=== PATIENT | female | born 1945 | race Caucasian/White ===

== ENCOUNTER 2020-03-16 12:41 | Outpatient (CLI) | payer OTHER, MEDICARE, SELFPAY ==
--- NOTE | 2020-03-21 11:21 | WPDPFTINT ---
PFT Interpretation PFT Interpretation: DOS: 03/16/2020 REQUESTING: Michael Valdovinos MD REASON FOR TESTING: Dyspnea PULMONARY FUNCTION TESTS Results are reliable and reproducible. Spirometry: FEV1 is 88%, FVC is 86%, FEV1 is normal. CCM43-67% is 63%, and increases by 32% after bronchodilator. There is no change in FEV1 after bronchodilator. Lung volumes: TLC 90%, normal. RV is 99%, normal. RV/TLC is increased consistent with air trapping. Increased airway resistance 143%. Diffusion: DLCO 71% mildly decreased. Flow volume loop: Normal. IMPRESSION: Mild small airway pattern with good response to bronchodilator, mild air trapping, mild increased airway resistance and mild diffusion impairment. Clinical correlation is recommended. Bela Ramirez MD
--- NOTE | 2020-03-21 11:27 | WPDSIXMINUTE ---
Six Minute Walk Six Minute Walk: DOS: 03/16/2020 REQUESTING: Michael Valdovinos MD REASON FOR TESTING: dyspnea SIX MINUTE WALK This test was conducted per ATS guidelines. The patient was on room air. Initial saturation measured was 95% and pulse was 85 beats per minute. She walked for 6 minutes without stopping, completing 950 feet / 290 meters. Saturation was maintained 91-99% while walking. Heart rate maximum was 121. Heart rate returned to normal at the end of recovery. Initial saturation of 89% is probably spurious. IMPRESSION: No hypoxemia noted on this test. No supplemental oxygen is indicated with exertion.
== END 2020-03-16 12:42 | disposition home or self-care (01) ==
PROVIDERS: PCP Family Medicine; Visit Provider Internal Medicine Pulmonary Disease
DX: R06.00 Dyspnea, unspecified (principal)
CPT/HCPCS: 94060; 94618; 94726; 94729

== ENCOUNTER 2020-06-08 14:02 | Outpatient (CLI) | payer OTHER, MEDICARE, SELFPAY ==
--- NOTE | ~2020-06-08 | MM_ITS ---
EXAMINATION: MM screening [facility] [place] HISTORY: Screening mammogram TECHNIQUE: Craniocaudal and mediolateral oblique 3-D tomosynthesis images were obtained and synthetic 2-D images were generated. CAD analysis was submitted and interpreted. COMPARISON: 03/14/2019, 09/08/2017, 07/21/2016 BREAST PARENCHYMAL COMPOSITION: There are scattered areas of fibroglandular density. FINDINGS: There is no evidence of suspicious mass, calcification, or architectural distortion to sugg est malignancy in either breast. There has been no suspicious interval change. IMPRESSION: 1. No mammographic evidence of malignancy. 2. Recommend routine screening mammography in one year. BI-RADS Category 1: Negative Reviewed, dictated and finalized at location A.
== END 2020-06-08 14:03 | disposition home or self-care (01) ==
LOC: ANHIMG 14:04
PROVIDERS: PCP Family Medicine; Visit Provider Obstetrics & Gynecology
DX: Z12.31 Encounter for screening mammogram for malignant neoplasm of breast (principal)
CPT/HCPCS: 77063; 77067

== ENCOUNTER 2021-06-10 07:34 | Outpatient (CLI) | payer OTHER, MEDICARE, SELFPAY ==
--- NOTE | ~2021-06-10 | MM_ITS ---
EXAMINATION: MM screening [facility] [place] HISTORY: Screening TECHNIQUE: Craniocaudal and mediolateral oblique 3-D tomosynthesis images were obtained and synthetic 2-D images were generated. CAD analysis was submitted and interpreted. COMPARISON: Comparison to multiple prior studies sequentially, with oldest reviewed study dated 08/2013. BREAST PARENCHYMAL COMPOSITION: There are scattered areas of fibroglandular density. FINDINGS: There is no evidence of suspicious mass, calcification, or architectural distortion to sugg est malignancy in either breast. There has been no suspicious interval change. IMPRESSION: 1. No mammographic evidence of malignancy. 2. Recommend routine screening mammography in one year. BI-RADS Category 1: Negative Reviewed, dictated and finalized at location A.
== END 2021-06-10 07:35 | disposition home or self-care (01) ==
LOC: ANHIMG 07:38
PROVIDERS: PCP Family Medicine; Visit Provider Obstetrics & Gynecology
DX: Z12.31 Encounter for screening mammogram for malignant neoplasm of breast (principal)
CPT/HCPCS: 77063; 77067

== ENCOUNTER 2022-07-13 22:03 | Emergency (ER) | payer OTHER, MEDICARE, SELFPAY ==
[2022-07-13] VITALS (10 sets, daily range): BP systolic 135–185; BP diastolic 67–98; PULSE 82; RESP 18; TEMP 36.6; O2SAT 90–100
--- NOTE | ~2022-07-13 | XR_ITS ---
XR knee RT min 4V 07/13/2022 22:38 Indication: Right knee pain after fall Procedure: 4 views right knee Comparison: 09/06/2012 Findings: There is a transverse displaced fracture of the patella. There is a right total knee arthro plasty well seated. No other fractures. Small joint effusion. Impression: 1: Transverse displaced patellar fracture. There is approximately 6 mm distraction. Reviewed, dictated and finalized at location A. Impression: 1: Transverse displaced patellar fracture. There is approximately 6 mm distract ion.
--- NOTE | ~2022-07-13 | CT_ITS ---
EXAMINATION: CT brain wo con DATE: 07/13/2022 23:37 INDICATION: Head injury TECHNIQUE: Computed tomography (CT) of the head was performed without intravenous contrast. The mA wa s adjusted according to patient size. Iterative reconstruction technique was employed. Exam dose: 68 1.00 mGy-cm total exam DLP. COMPARISON: 01/07/2013 MRI brain/brainstem 01/07/2013 CT brain FINDINGS: There is a prominent cephalohematoma high over the right anterior cerebral convexity. No sk ull fracture is noted. There is a small amount of subarachnoid hemorrhage in the right temporal area . Middle cerebral artery or branch artery thrombosis is not excluded on the right. Bilateral carotid siphon internal carotid artery and vertebral artery calcifications. There is nonspe cific diminished attenuation cerebral white matter, likely due to chronic small vessel ischemic berg es. No intracranial mass lesion or cerebrovascular accident is evident. No midline shift or mass effe ct effect. Included paranasal sinuses and mastoid air cells are normally developed and aerated. IMPRESSION: Prominent cephalohematoma high over the anterior frontal convexity; no skull fracture Small subarachnoid hemorrhage in the right temporal area. Right middle cerebral artery or branch thro mbosis is not excluded Cerebral atherosclerosis Chronic small vessel ischemic changes of the cerebral white matter Reviewed, dictated and finalized at Location A. Reviewed, dictated and finalized at location B. 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 Right middle cerebral artery or branch thrombosis is not excluded Cerebral atherosclerosis Chronic small vessel ischemic changes of the cerebral white matter
--- NOTE | ~2022-07-13 | CT_ITS ---
EXAMINATION: CT cervical spine wo con DATE: 07/13/2022 23:37 INDICATION: Head injury TECHNIQUE: Computed tomography (CT) of the cervical spine was performed without intravenous contrast. Automated exposure control and iterative reconstruction technique were employed. Exam dose: 681.00 mGy-cm total exam DLP. COMPARISON: None FINDINGS: There is straightening of cervical spine which may be due to muscle spasm and/or positionin g. There is dextroscoliosis of the cervical spine. C1 and C2 are normally aligned and the odontoid process is intact. There is an approximately 2.2 mm anterolisthesis at C2-3. There is moderate degenerative disc disease at C2-3 and severe degenerative disc disease throughout t he remainder of the cervical spine. There is prominent degenerative change of the apophyseal and unco vertebral joints throughout the cervical spine. Degenerative disc disease and levoscoliosis of the upper thoracic spine IMPRESSION: Straightening and dextroscoliosis 2.2 mm anterolisthesis C2-3 Severe cervical spondylosis Reviewed, dictated and finalized at Location A. Reviewed, dictated and finalized at location B. ECTOR AND TESTER
--- NOTE | ~2022-07-13 | XR_ITS ---
XR pelvis 1-2V 07/14/2022 00:59 Indication: Status post fall. Hip pain. Procedure: AP pelvis Comparison: No prior studies for comparison. Findings: Pelvic rings are intact. Mild osteoarthritis of the hips. No acute fracture or traumatic ma lalignment. Sacral foramen are symmetric. Impression: 1: No acute fracture. Reviewed, dictated and finalized at location A. 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
--- NOTE | ~2022-07-13 | XR_ITS ---
EXAMINATION: XR chest 1V portable 07/14/2022 00:59 INDICATION: Chest pain. Status post fall. PROCEDURE: AP portable chest COMPARISON: 01/11/2004 FINDINGS: The lungs are clear. The cardiomediastinal silhouette is within normal limits. There are no pleural effusions. There is no pneumothorax suspected. There is a left humeral head prosthesis. IMPRESSION: 1: NO ACUTE CARDIOPULMONARY DISEASE. Reviewed, dictated and finalized at location A. FORESTER
--- NOTE | 2022-07-13 22:25 | ED.FALL ---
HPI - Fall General Chief Complaint: Fall <STEFANO Garcia Last Filed: 07/14/22 01:47> Stated Complaint: fall <STEFANO Garcia Last Filed: 07/14/22 01:47> Time Seen by Provider: 07/13/22 22:17 <STEFANO Garcia Last Filed: 07/14/22 01:47> Source: patient <STEFANO Garcia Last Filed: 07/14/22 01:47> Mode of arrival: wheelchair <STEFANO Garcia Last Filed: 07/14/22 01:47> Limitations: no limitations <STEFANO Garcia Last Filed: 07/14/22 01:47> History of Present Illness HPI Narrative: This is a 76 year old female that presents to the ER after a fall today with head injury. Reports she missed the last step walking down the steps. Reports this caused her to fall and hit her head on the wall. Reports bruising to her right knee. No other injuries or focal areas of pain. Denies chest pain, shortness of breath, abdominal pain, vomiting, numbness or weakness. <STEFANO Garcia Last Filed: 07/14/22 01:47> Related Data Home Medications: Home Medications Medication Instructions Recorded Confirmed venlafaxine 150 mg 150 mg PO DAILY 01/02/22 01/02/22 capsule,extended release 24 hr aspirin 325 mg tablet (Bebeto 325 mg PO DAILY 06/24/22 Aspirin) doxylamine succinate 25 mg tablet 25 mg PO QHS PRN 06/24/22 multivit with 1 tablet PO DAILY 06/24/22 lkvxlkcv-yusi-PL-lutein 8 mg iron-400 mcg-300 mcg tablet (Centrum Silver Women) vitamin B complex (B 1 tablet PO DAILY 06/24/22 Complex-Vitamin B12 tablet) <STEFANO Garcia Last Filed: 07/14/22 01:47> Allergies/Adverse Reactions: Allergies Allergy/AdvReac Type Severity Reaction Status Date / Time poison rosalie extract Allergy Mild Rash Verified 07/13/22 22:33 <STEFANO Garcia Last Filed: 07/14/22 01:47> Review of Systems Review of Systems: CONSTITUTIONAL: Denies fever EYES: Denies visual changes CARDIOVASCULAR: Denies chest pain RESPIRATORY: Denies dyspnea. GASTROINTESTINAL: Denies abdominal pain, nausea, vomiting MUSCULOSKELETAL: Denies back pain, joint pain, or myalgia. NEUROLOGIC: Reports headache. Denies numbness, or weakness. <Kary Jonas PA-C - Last Filed: 07/14/22 01:47> All systems reviewed & are unremarkable except as noted in HPI and below <Kary Jonas PA-C - Last Filed: 07/14/22 01:47> [facility] Past Medical History Medical History: Medical History Arthritis right knee High cholesterol History of TIA (transient ischemic attack) (~2011) Hypertension NSAID long-term use daily aspirin 325mg Screening mammogram, encounter for <Kary Jonas PA-C - Last Filed: 07/14/22 01:47> Surgical History Surgical History: Surgical History History of breast biopsy 1969 benign 1979 benign 07/10/08 left breast benign 05/02/09 left breast benign History of knee replacement, total (~12/09/15) right knee History of shoulder replacement (~12/08/17) left shoulder <Kary Jonas PA-C - Last Filed: 07/14/22 01:47> Family History Family History: Family History Mother Family history of malignant neoplasm of ovary Father Cerebrovascular accident Malignant neoplasm of pharynx Heart disease Sibling Hypertension sister Breast cancer sister <Kary Jonas PA-C - Last Filed: 07/14/22 01:47> Social History Social History: Social History Smoking status: Never smoker Second hand tobacco smoke exposure: No Alcohol intake: current Drinks per week: 5 Substance use: never Substance use type: does not use Additional living arrangements comments: 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
[2022-07-13] MEDS: ACETAMINOPHEN 500 MG TABLET 1000 MG PO (22:34)
[2022-07-14] VITALS (8 sets, daily range): BP systolic 130–148; BP diastolic 72–96; PULSE 65–68; RESP 13–18; O2SAT 96–99
[2022-07-14 00:41] LABS: Basophils Percent Auto 0.3 % (0.2-1.2); Eosinophils Absolute Auto 0.2 K/mm3 (0-0.3); Eosinophils Percent Auto 1.7 % (0-4.4); Hematocrit 35.4 % (37.0-47.0); Hemoglobin 12.2 g/dL (12.0-15.0); Immature Granulocyte Absolute 0.03 K/mm3 (0.00-0.031); Immature Granulocyte Percent A 0.2 % (0-0.5); Lymphocytes Percent Auto 16.1 % (18.3-44.2); Mean Corpuscular HGB Conc 34.5 g/dl (32-36); Mean Corpuscular Hemoglobin 30.7 pg (26-34); Mean Corpuscular Volume 89.2 fl (80-100); Mean Platelet Volume 9.5 fl (7.4-10.4); Monocytes Absolute Auto 0.9 K/mm3 (0.1-0.6); Monocytes Percent Auto 6.9 % (2.6-8.5); Neutrophils Absolute Auto 9.7 K/mm3 (1.3-6.7); Neutrophils Percent Auto 74.8 % (45.5-73.1); Platelet Count Result 274 k/mm3 (150-375); Red Blood Count 3.97 M/mm3 (4.2-5.4); Red Cell Distribution Width 13.1 % (11.5-14.5)
[2022-07-14 01:01] LABS: Prothrombin Time 12.7 Seconds (11.1-14.7)
[2022-07-14 01:02] LABS: Anion Gap 11 mmol/L (8-16); Blood Urea Nitrogen 18 mg/dL (7-17); Calcium 8.9 mg/dL (8.4-10.2); Carbon Dioxide 21 mmol/L (22-30); Chloride 102 mmol/L (98-107); Estimated CRCL calculation 68 ml/min; Estimated Glomerular Filt Rate > 60; Glucose 121 mg/dL (65-110); Partial Thromboplastin Time 27.8 SECONDS (22.3-36.8); Potassium 3.4 mmol/L (3.4-5.0); Sodium 134 mmol/L (137-145)
== END 2022-07-14 01:53 | disposition short-term general hospital (02) ==
PROVIDERS: Physician Assistant; Emergency Provider Emergency Medicine; PCP Emergency Medicine
DX: S06.6X0A Traumatic subarachnoid hemorrhage without loss of consciousness, initial encounter (principal); S82.031A Displaced transverse fracture of right patella, initial encounter for closed fracture; I10 Essential (primary) hypertension; E78.00 Pure hypercholesterolemia, unspecified; M17.11 Unilateral primary osteoarthritis, right knee; Z86.73 Personal history of transient ischemic attack (TIA), and cerebral infarction without residual deficits; Z79.82 Long term (current) use of aspirin; Z96.651 Presence of right artificial knee joint; Z96.612 Presence of left artificial shoulder joint; I67.2 Cerebral atherosclerosis; M47.812 Spondylosis without myelopathy or radiculopathy, cervical region; W10.9XXA Fall (on) (from) unspecified stairs and steps, initial encounter
CPT/HCPCS: 36415; 70450; 71045; 72125; 72170; 73564; 80048; 85025; 85610; 85730; 99291; A9270

== ENCOUNTER 2022-12-02 15:51 | Outpatient (CLI) | payer OTHER, MEDICARE, SELFPAY ==
--- NOTE | ~2022-12-02 | MM_ITS ---
EXAMINATION: MM screening [facility] HISTORY: Screening mammogram TECHNIQUE: Craniocaudal and mediolateral oblique 3-D tomosynthesis images were obtained and synthetic 2-D images were generated. CAD analysis was submitted and interpreted. COMPARISON: 06/10/2021, 06/08/2020, 03/14/2019 bilateral screening mammogram examinations BREAST PARENCHYMAL COMPOSITION: There are scattered areas of fibroglandular density. FINDINGS: There is a biopsy marker on each side; history of bilateral benign breast biopsies. New cluster of grouped suspicious microcalcifications with irregular and linear and branching configu rations, situated in the lower inner right breast. Otherwise there is no evidence of suspicious mass, calcification, or architectural distortion to sugg est malignancy in either breast. There has been no other suspicious interval change. IMPRESSION: 1. New grouped suspicious microcalcifications in the lower inner right breast 2. Diagnostic right mammogram with magnification views is recommended BI-RADS Category 0: Incomplete: Needs additional imaging evaluation. Reviewed, dictated and finalized at location A.
== END 2022-12-02 15:52 | disposition home or self-care (01) ==
PROVIDERS: PCP Emergency Medicine; Visit Provider Obstetrics & Gynecology
DX: Z12.31 Encounter for screening mammogram for malignant neoplasm of breast (principal); R92.0 Mammographic microcalcification found on diagnostic imaging of breast
CPT/HCPCS: 77063; 77067

== ENCOUNTER 2022-12-25 11:44 | Outpatient (CLI) | payer OTHER, MEDICARE, SELFPAY ==
--- NOTE | ~2022-12-25 | MM_ITS ---
EXAMINATION: MM diagnostic mammo unilat RT HISTORY: Right breast calcifications on screening mammogram TECHNIQUE: Magnification views of the right breast were performed. CAD analysis was submitted and int erpreted. COMPARISON: 12/02/2022, 06/10/2021, 06/08/2020 FINDINGS: There are grouped, fine pleomorphic calcifications in the anterior third of the lower inner breast at the 5:00 location, 5 cm from the nipple. IMPRESSION: 1. Indeterminate right breast calcifications. 2. Stereotactic right breast biopsy is recommended. BI-RADS category 4, suspicious findings. Reviewed, dictated and finalized at location A.
== END 2022-12-25 11:45 | disposition home or self-care (01) ==
PROVIDERS: PCP Emergency Medicine; Visit Provider Obstetrics & Gynecology
DX: R92.0 Mammographic microcalcification found on diagnostic imaging of breast (principal); R92.8 Other abnormal and inconclusive findings on diagnostic imaging of breast
CPT/HCPCS: 77065

== ENCOUNTER 2023-01-07 10:02 | Outpatient (CLI) | payer OTHER, MEDICARE, SELFPAY ==
--- NOTE | ~2023-01-07 | MM_ITS ---
EXAMINATION: MM stereotactic bx RT, MM post biopsy diagnostic RT, MM stereotactic specimen RT, Specim en Radiograph, Tissue Marker Clip Placement, Unilateral Mammogram DATE: 01/07/2023 12:05 INDICATION: Abnormal mammogram: Indeterminate grouped fine pleomorphic microcalcifications reported i n the anterior third of the lower inner left breast at 5:00 position, 5 cm from nipple on 12/25/2022 s creening mammogram. TECHNIQUE AND FINDINGS: The risks and potential benefits of the procedure were discussed with the patient and written informe d consent was obtained. Timeout procedure was performed. The patient was placed in the prone position on the dedicated stereotactic table with the right breast in caudal cranial compression, and the are a of interest was localized and targeted utilizing digital imaging with stereotaxis. After sterile preparation of the skin, 1% lidocaine was utilized for local anesthesia at the skin pun cture site and 2 % lidocaine with epinephrine was utilized for deeper local anesthesia/is about the b iopsy site. A 9G TSCA vacuum assisted biopsy needle was advanced to the level of the calcification of interest from a caudal approach utilizing stereotactic guidance and a total of 13 tissue core biop sies were obtained. A specimen radiograph demonstrates that the calcifications of interest are included within the tissue cores. A tissue marker clip was then placed at the biopsy site. A digital mammographic exposure co nfirmed the successful deployment of the biopsy marker. The needle was removed and hemostasis was ac hieved. A sterile bandage was applied. The patient tolerated the procedure well and there is no stephanie dence of significant immediate complication. The patient was given verbal as well as written postpro cedural instructions prior to discharge from the department. Tissue cores were submitted to surgical pathology for histologic analysis. A 2-view right unilateral digital mammogram was obtained post procedure, demonstrating the tissue mar ker clip in expected position. IMPRESSION: 1. Successful stereotactic biopsy of lower inner quadrant left breast microcalcifications, followed by tissue marker clip placement. Please refer to pathology report for histologic analysis. Reviewed, dictated and finalized at Location A. Reviewed, dictated and finalized at location A. IMPRESSION: 1. Successful stereotactic biopsy of lower inner quadrant left breast microca lcifications, followed by tissue marker clip placement. Please refer to pathol ogy report for histologic analysis. IMPRESSION: 1. Successful stereotactic biopsy of lower inner quadrant left breast microca lcifications, followed by tissue marker clip placement. Please refer to pathol ogy report for histologic analysis.
== END 2023-01-07 10:03 | disposition home or self-care (01) ==
PROVIDERS: PCP Emergency Medicine; Visit Provider Surgery
DX: R92.8 Other abnormal and inconclusive findings on diagnostic imaging of breast (principal); R92.0 Mammographic microcalcification found on diagnostic imaging of breast
CPT/HCPCS: 19081; 77065; 88305; 88342; A4648

== ENCOUNTER 2023-02-23 08:40 | Outpatient (CLI) | payer OTHER, MEDICARE, SELFPAY ==
--- NOTE | ~2023-02-23 | MM_ITS ---
EXAMINATION: [id number]_[id number]_MG INDICATION: Right breast cancer TECHNIQUE: The procedure for a ultrasound -guided Magseed localization was discussed with the patient . Risks discussed included bleeding and infection. The patient verbalized understanding and agreed to proceed. The time out was performed to verify the patient's name, date of , and site of procedure. The s kin overlying the right breast was prepared in usual fashion. Utilizing ultrasound guidance, the need le was advanced into the right breast. Confirmation of Magseed position was achieved with ultrasound and subsequent mediolateral and craniocaudal mammogram. The patient tolerated procedure without immed iate complication. FINDINGS: Ultrasound and mammographic images demonstrate deployment of the Magseed device of the biop sy-proven right breast cancer. IMPRESSION: 1. Successful ultrasound-guided right breast Magseed localization in the lower inner quadrant. Reviewed, dictated and finalized at location A.
== END 2023-02-23 08:41 | disposition home or self-care (01) ==
PROVIDERS: PCP Emergency Medicine; Visit Provider Surgery
DX: D05.11 Intraductal carcinoma in situ of right breast (principal)
CPT/HCPCS: 19281; A4648

== ENCOUNTER 2023-03-04 10:28 | Outpatient (CLI) | payer OTHER, MEDICARE, SELFPAY ==
[2023-03-04 11:07] LABS: Anion Gap 11 mmol/L (8-16); Blood Urea Nitrogen 19 mg/dL (7-17); Calcium 8.8 mg/dL (8.4-10.2); Carbon Dioxide 26 mmol/L (22-30); Chloride 98 mmol/L (98-107); Estimated Glomerular Filt Rate > 60; Glucose 115 mg/dL (65-110); Potassium 4.2 mmol/L (3.4-5.0); Sodium 135 mmol/L (137-145)
== END 2023-03-04 10:29 | disposition home or self-care (01) ==
LOC: ANHSURGERY 10:37
PROVIDERS: Anesthesiology; PCP Emergency Medicine; Visit Provider Surgery
DX: I10 Essential (primary) hypertension (principal)
CPT/HCPCS: 36415; 80048

== ENCOUNTER 2023-03-10 00:37 | Day surgery (SDC) | payer OTHER, MEDICARE, SELFPAY ==
--- NOTE | 2023-03-02 15:25 | PC.NURSE ---
Report to the Outpatient Waiting Room, entrance under the green pavilion located off [facility], at time __0600 on date __03/10/23 . Planned Procedure Time: __729 . Time changes happen often and if your time is changed the preop area will call you the afternoon before. - You and your visitor will be asked to self-screen and do not enter if you have any COVID symptoms. - A mask is optional within the hospital at this time. Patients may have clear liquids (water, carbonated beverages, clear teas, apple juice) until 3 hours prior to surgery with a maximum of 20 ounces. - No food from midnight until time of surgery - Infants may have breast milk until 4 hours before surgery, formula 6 hours prior to surgery. - Children will be allowed to drink immediately following surgery. If applicable, please bring a bottle or sippy cup to assist with drinking. Juice, water, soda, and popsicles are readily available. For infants on formula, please bring formula the day of surgery. Pacifiers are allowed. Take the following medications with a SIP of water the morning of surgery: __METOPROLOL DO NOT STOP ANY OF YOUR OTHER PRESCRIPTION MEDICATIONS PRIOR TO SURGERY ?EXCEPT THE FOLLOWING Medications to discontinue per physician __ALL VITAMINS/SUPPLEMENTS 3 DAYS PRE OP.LAST DOSE 03/06/23. PT STATES ASPIRIN LAST DOSE 02/22/23 Please no make-up, nail welsh, hairspray, perfume, deodorant, or body powder the day of surgery. No jewelry (including any body piercings) or valuables the day of surgery, leave them at home. Please take a shower or bath the night before, or the morning of, surgery with an antibacterial soap. Wear comfortable, loose fitting clothing. Children are encouraged to wear pajamas. - Jewelry must be removed prior to entering the operating room. Rings and piercings that are not removed may be cut off. - The hospital will not accept responsibility for valuables. - Please leave all valuables, including medications, at home the day of surgery. If you are going home after surgery, a licensed patrol driver must drive you home. - NO public transportation without another adult if you receive anesthesia. - We recommend that an adult stay with you for 24 hours following discharge. - We also recommend that you do not drive, make important decision, drink alcoholic beverages, or take any drugs that were not prescribed by your health care provider for at least 24 hours after your discharge time. Follow any additional instructions given to you from your surgeon. If you or anyone in your household have experienced Covid symptoms in the past week, please notify your surgeon or the nurse liaison at the phone number below for possible testing. Telephone instructions given to __PATIENT and asked if any additional questions and then verbalized understanding. Patient advised to call surgeon office or pre surgery nurse liaison [phone] if any additional questions.
[2023-03-02 15:37] VITALS: BMI 32.5
--- NOTE | 2023-03-09 14:44 | WPDANESEPPF ---
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 Patient Data Age: 77 Gender: F Height: 1.75 m Weight: 99.8 kg Allergies Allergy/AdvReac Type Severity Reaction Status Date / Time poison rosalie extract Allergy Mild Rash Verified 03/10/23 07:33 Home Medications Medication Instructions Recorded Confirmed Type kcmdysbz-lexd-celv 8 mg-folic 400 1 tablet PO DAILY 06/24/22 03/02/23 History mcg-K 50 mcg-lutein 300 mcg tablet (Centrum Silver Women) vitamin B complex (B 1 tablet PO DAILY 06/24/22 03/02/23 History Complex-Vitamin B12 tablet) aspirin 81 mg chewable tablet 81 mg PO DAILY@0800 #30 tabs 07/26/22 03/02/23 Rx (Children's Aspirin) metoprolol tartrate 25 mg tablet 25 mg PO Q12HR #180 tabs 01/06/23 03/10/23 Rx losartan 100 mg tablet See Rx Instructions .Route 01/08/23 03/02/23 Rx .COMPLEX #90 tabs acetaminophen 650 mg 1,300 mg PO Q12H PRN Pain 03/02/23 03/02/23 History tablet,extended release (Tylenol Arthritis Pain) atorvastatin 10 mg tablet (Lipitor) 10 mg PO HS 03/02/23 03/02/23 History cholecalciferol (vitamin D3) 50 50 mcg PO DAILY 03/02/23 03/02/23 History mcg (2,000 unit) tablet hydroxyzine HCl 25 mg tablet 25 mg PO HS anxiety 03/02/23 03/02/23 History venlafaxine 150 mg 150 mg PO HS 03/02/23 03/02/23 History capsule,extended release 24 hr hydrochlorothiazide 25 mg tablet 25 mg PO DAILY #90 tabs 03/05/23 Rx tramadol 50 mg tablet 50 mg PO Q6H PRN pain #6 tabs 03/10/23 Rx Patient hx anesthesia problems: none Family hx anesthesia problems: none Results Review: All pre-operative results and documents have been reviewed as part of the pre-operative evaluation. [facility] Past Medical History Medical History (Updated 03/09/23 @ 14:44 by Michael Gonzales, ) Arthritis right knee High cholesterol History of TIA (transient ischemic attack) (~2011) Hypertension Microcalcification of right breast on mammogram NSAID long-term use daily aspirin 325mg PONV (postoperative nausea and vomiting) Screening mammogram, encounter for Surgical History Surgical History H/O right breast biopsy (01/07/23) stereotactic biopsy of lower inner quadrant right breast microcalcifications / Pathology ductal carcinoma in situ History of breast biopsy 1969 benign 1978 benign 07/10/08 left breast benign 05/02/09 left breast benign History of knee replacement, total (~12/09/15) right knee History of shoulder replacement (~12/08/17) left shoulder Family History Family History Mother Family history of malignant neoplasm of ovary Father Cerebrovascular accident Malignant neoplasm of pharynx Heart disease Sibling Hypertension sister Breast cancer sister Social History Social History Smoking status: Never smoker Second hand tobacco smoke exposure: No Alcohol intake: current Drinks per week: 5 Substance use: never Substance use type: does not use Lack of Transportation: No Lack of Food: Never True Current Housing: I Have Housing Concerned About Future Housing: No Difficulty Paying Gas/Electric Bills: No Difficulty Paying for Meds: No Currently Unemployed: No Education: High School Diploma/GED Difficulty w/ Childcare or Family Care: No Living arrangements: alone Additional living arrangements comments: Occupation/Education: occupation 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
[2023-03-10] VITALS (10 sets, daily range): BP systolic 130–168; BP diastolic 70–81; PULSE 67–84; RESP 14–20; TEMP 36.2–36.4; O2SAT 94–100
[2023-03-10] MEDS: LACTATED RINGERS 1,000 ML 30 ML IV CONT (07:00)
--- NOTE | 2023-03-10 07:03 | PM.IMHP ---
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 Pt reports no interval change in medical history. She has not taken aspirin for 2 days. Review of Systems Constitutional: Constitutional: Reports no additional constitutional complaints Cardiovascular: Comments: denies chest pain Respiratory: Comments: denies SOB Gastrointestinal: Gastrointestinal: Reports no additional gastrointestinal complaints Integumentary/Breasts: Skin/Breast: Reports as per [facility] Past Medical History Medical History (Updated 03/09/23 @ 14:44 by Michael Gonzales DO) Arthritis right knee High cholesterol History of TIA (transient ischemic attack) (~2011) Hypertension Microcalcification of right breast on mammogram NSAID long-term use daily aspirin 325mg PONV (postoperative nausea and vomiting) Screening mammogram, encounter for Surgical History Surgical History H/O right breast biopsy (01/07/23) stereotactic biopsy of lower inner quadrant right breast microcalcifications / Pathology ductal carcinoma in situ History of breast biopsy 1969 benign 1979 benign 07/10/08 left breast benign 05/02/09 left breast benign History of knee replacement, total (~12/09/15) right knee History of shoulder replacement (~12/08/17) left shoulder Family History Family History Mother Family history of malignant neoplasm of ovary Father Cerebrovascular accident Malignant neoplasm of pharynx Heart disease Sibling Hypertension sister Breast cancer sister Social History Social History Smoking status: Never smoker Second hand tobacco smoke exposure: No Alcohol intake: current Drinks per week: 5 Substance use: never Substance use type: does not use Lack of Transportation: No Lack of Food: Never True Current Housing: I Have Housing Concerned About Future Housing: No Difficulty Paying Gas/Electric Bills: No Difficulty Paying for Meds: No Currently Unemployed: No Education: High School Diploma/GED Difficulty w/ Childcare or Family Care: No Living arrangements: alone Additional living arrangements comments: Occupation/Education: occupation 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cerns: No Meds Home Medications and Allergies Home Medications Medication Instructions Recorded Confirmed Type cbeeuenb-vaoz-ltvx 8 mg-folic 400 1 tablet PO DAILY 06/24/22 03/02/23 History mcg-K 50 mcg-lutein 300 mcg tablet (Centrum Silver Women) vitamin B complex (B 1 tablet PO DAILY 06/24/22 03/02/23 History Complex-Vitamin B12 tablet) aspirin 81 mg chewable tablet 81 mg PO DAILY@0800 #30 tabs 07/26/22 03/02/23 Rx (Children's Aspirin) metoprolol tartrate 25 mg tablet 25 mg PO Q12HR #180 tabs 01/06/23 03/02/23 Rx losartan 100 mg tablet See Rx Instructions .Route 01/08/23 03/02/23 Rx .COMPLEX #90 tabs acetaminophen 650 mg 1,300 mg PO Q12H PRN Pain 03/02/23 03/02/23 History tablet,extended release (Tylenol Arthritis Pain) atorvastatin 10 mg tablet (Lipitor) 10 mg PO HS 03/02/23 03/02/23 History cholecalciferol (vitamin D3) 50 50 mcg PO DAILY 03/02/23 03/02/23 History mcg (2,000 unit) tablet hydroxyzine HCl 25 mg tablet 25 mg PO HS anxiety 03/02/23 03/02/23 History venlafaxine 150 mg 150 mg PO HS 03/02/23 03/02/23 History capsule,extended release 24 hr hydrochlorothiazide 25 mg tablet 25 mg PO DAILY #90 tabs 03/05/23 Rx Allergies Allergy/AdvReac Type Severity Reaction Status Date / Time poison rosalie extract Allergy Mild Rash
--- NOTE | 2023-03-10 07:18 | WPDANESEPPF ---
Anes - Initial Pre Proc Eval Procedure: Operation Date: 03/10/23 07:30 Proposed Procedures p Right Breast Lumpectomy - Leslie Shanks MD Date/Time: 03/10/23 07:18 Surgeon: Leslie Shanks MD Pre Op Diagnosis: intraductal CA insitu right breast Patient Data Age: 77 Gender: F Height: 1.75 m Weight: 99.8 kg Allergies Allergy/AdvReac Type Severity Reaction Status Date / Time poison rosalie extract Allergy Mild Rash Verified 03/02/23 15:11 Home Medications Medication Instructions Recorded Confirmed Type jbdopbyz-mgee-itsz 8 mg-folic 400 1 tablet PO DAILY 06/24/22 03/02/23 History mcg-K 50 mcg-lutein 300 mcg tablet (Centrum Silver Women) vitamin B complex (B 1 tablet PO DAILY 06/24/22 03/02/23 History Complex-Vitamin B12 tablet) aspirin 81 mg chewable tablet 81 mg PO DAILY@0800 #30 tabs 07/26/22 03/02/23 Rx (Children's Aspirin) metoprolol tartrate 25 mg tablet 25 mg PO Q12HR #180 tabs 01/06/23 03/02/23 Rx losartan 100 mg tablet See Rx Instructions .Route 01/08/23 03/02/23 Rx .COMPLEX #90 tabs acetaminophen 650 mg 1,300 mg PO Q12H PRN Pain 03/02/23 03/02/23 History tablet,extended release (Tylenol Arthritis Pain) atorvastatin 10 mg tablet (Lipitor) 10 mg PO HS 03/02/23 03/02/23 History cholecalciferol (vitamin D3) 50 50 mcg PO DAILY 03/02/23 03/02/23 History mcg (2,000 unit) tablet hydroxyzine HCl 25 mg tablet 25 mg PO HS anxiety 03/02/23 03/02/23 History venlafaxine 150 mg 150 mg PO HS 03/02/23 03/02/23 History capsule,extended release 24 hr hydrochlorothiazide 25 mg tablet 25 mg PO DAILY #90 tabs 03/05/23 Rx Patient hx anesthesia problems: none Family hx anesthesia problems: none Results Review: All pre-operative results and documents have been reviewed as part of the pre-operative evaluation. [facility] Past Medical History Medical History (Updated 03/09/23 @ 14:44 by Michael Gonzales, ) Arthritis right knee High cholesterol History of TIA (transient ischemic attack) (~2011) Hypertension Microcalcification of right breast on mammogram NSAID long-term use daily aspirin 325mg PONV (postoperative nausea and vomiting) Screening mammogram, encounter for Surgical History Surgical History H/O right breast biopsy (01/07/23) stereotactic biopsy of lower inner quadrant right breast microcalcifications / Pathology ductal carcinoma in situ History of breast biopsy 1969 benign 1979 benign 07/10/08 left breast benign 05/02/09 left breast benign History of knee replacement, total (~12/09/15) right knee History of shoulder replacement (~12/08/17) left shoulder Family History Family History Mother Family history of malignant neoplasm of ovary Father Cerebrovascular accident Malignant neoplasm of pharynx Heart disease Sibling Hypertension sister Breast cancer sister Social History Social History Smoking status: Never smoker Second hand tobacco smoke exposure: No Alcohol intake: current Drinks per week: 5 Substance use: never Substance use type: does not use Lack of Transportation: No Lack of Food: Never True Current Housing: I Have Housing Concerned About Future Housing: No Difficulty Paying Gas/Electric Bills: No Difficulty Paying for Meds: No Currently Unemployed: No Education: High School Diploma/GED Difficulty w/ Childcare or Family Care: No Living arrangements: alone Additional living arrangements comments: Occupation/Education: occupation 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cerns: No Anes - Eval Final PreProcedure Day of Procedur
--- NOTE | 2023-03-10 07:26 | WPDHPUPDATE1 ---
History and Physical Update Update Date/Time: 03/10/23 07:26 History and Physical has been reviewed, including an updated exam of the patient. There are NO changes in the patient's condition. Risks, benefits, and alternatives have been discussed and questions answered. Patient agrees to proceed with procedure.
[2023-03-10] MEDS: ceFAZolin 2 GM/D5W 50 ML 2 GM/50 ML BAG IVPB (07:34)
[2023-03-10] MEDS: BUPIVACAINE/EPINEPHRINE 0.25% 10 ML VIAL 20 ML INFILTRATE (08:02)
--- NOTE | 2023-03-10 08:36 | SUR.OPER ---
Addendum entered by Sabine Dodge RN 03/10/23 08:43: Incision- 0752 Excision- 0826 Faxitron Report- 0832 Out of room- 0832 Lab Received- 0837 Original Note: Incision- 0752 Excision- Faxitron- Room Time- Lab received- 836
--- NOTE | 2023-03-10 08:40 | P.OP_ITS ---
Procedure Note - Detailed Date of Procedure 03/10/23 Pre-op Diagnosis Right breast ductal carcinoma in situ Post-op Diagnosis Same Procedure Performed 1. Right breast lumpectomy with magseed localization 2. Interpretation of intraoperative faxitron images Surgeon Leslie Shanks MD Bander [employer] Cell[employer]er Helper Machine Yane Membreno PA-C Anesthesia General Indications 77-year-old female who presented for evaluation of newly diagnosed right breast ductal carcinoma in Situ, ER positive, SD positive, intermediate nuclear grade.? I discussed previously both options for mastectomy versus lumpectomy, and patient has been evaluated by both Radiation as well as Oncology.? Patient has decided to proceed with breast conservation therapy with lumpectomy and adjuvant radiation.? Patient is also on in agreement with adjuvant aromatase inhibitor which was discussed with Oncology.? Risks of the surgery were discussed with the patient which included but not limited to risk of bleeding, infection, recurrence, positive margins, possible need for additional procedures in the future, wound healing problems, pain, as well as the risk of anesthesia.? All questions were answered patient has agreed to proceed. Description of Procedure Patient was identified in the pre-operative area and brought to the OR suite. She underwent tumor localization previously by IR with magseed placement prior to surgery day. She was laid supine in the operating table and sequential compression devices were applied. General anesthesia was induced without difficulties. The right chest was prepped and draped in a sterile fashion. The sentimag probe was used to identify the area where the magseed was placed and inferior periareolar incision was made using a 15 blade. Dissection was carried down through the subcutaneous tissue into the breast tissue. The area of concern was identified with sentimag probe, and a rim of normal breast tissue was excised along with the magseed as our lumpectomy specimen. Once the specimen was completely excised, it was oriented using surgical paint according to singing telegram performer instructions. The specimen was placed in the faxitron and 2 view images were obtained of the specimen confirming the presence of magseed and biopsy marker within the center of the lumpectomy specimen. This was then sent to pathology as permanent specimen. The deep dermal layer was approximated using interrupected 3-0 vicryl followed by 4-0 monocryl for the skin. Dermabond was applied followed by a surgical bra. Patient was awoken from anesthesia and taken to the recovery area in stable condition. All needles, instruments and sponge counts were correct as reported by the operating room staff. Patient tolerated the procedure well with no immediate complications. Yane Membreno PA-C was required for position, retraction and general assistance due to complexity of excision and previous history of excisional biopsy in the same breast. Ischemia specimen time: 825. Estimated Blood Loss 5 Drains No Pathology Yes Complications No immediate complications Condition Stable Disposition PACU [facility] Billing Surgery - Charge Forward: Surgery Billing
[2023-03-10] MEDS: fentaNYL CITRATE INJ (*CRX) 100 MCG/2 ML VIAL 25 MCG IV PUSH ×4 (09:15→09:38)
[2023-03-10] MEDS: oxyCODONE HCL (*CRX) 5 MG TAB IR PO (09:57)
== END 2023-03-10 11:08 | disposition home or self-care (01) ==
PROVIDERS: PCP Emergency Medicine; Visit Provider Surgery
PROC: (CPT 19301; principal; 2023-03-10 07:30)
DX: D05.11 Intraductal carcinoma in situ of right breast (principal); I10 Essential (primary) hypertension; E78.00 Pure hypercholesterolemia, unspecified; Z86.73 Personal history of transient ischemic attack (TIA), and cerebral infarction without residual deficits; E66.9 Obesity, unspecified; Z68.33 Body mass index [BMI] 33.0-33.9, adult; Z79.82 Long term (current) use of aspirin
CPT/HCPCS: 19301; 76098; 88307; 88342; A9270; C1713; J0690; J1100; J2405; J2704; J3010; J7120; Q9968

== ENCOUNTER 2023-03-18 01:02 | Day surgery (SDC) | payer OTHER, MEDICARE, SELFPAY ==
[2023-03-17 12:46] VITALS: BMI 32.8
--- NOTE | 2023-03-17 13:06 | PC.NURSE ---
Report to the Outpatient Waiting Room, entrance under the green pavilion located off [facility], at time _12:00PM on date __03/18/23 . Planned Procedure Time: __2:00PM . Time changes happen often and if your time is changed the preop area will call you the afternoon before. - You and your visitor will be asked to self-screen and do not enter if you have any COVID symptoms. - A mask is optional within the hospital at this time. Patients may have clear liquids (water, carbonated beverages, clear teas, apple juice) until 3 hours prior to surgery with a maximum of 20 ounces. - No food from midnight until time of surgery Take the following medications with a SIP of water the morning of surgery: __METOPROLOL DO NOT STOP ANY OF YOUR OTHER PRESCRIPTION MEDICATIONS PRIOR TO SURGERY ?EXCEPT THE FOLLOWING Medications to discontinue per physician __HOLD VITAMINS/SUPPLEMENTS STARTING NOW- 03/17/23 Please no make-up, nail norwegian, hairspray, perfume, deodorant, or body powder the day of surgery. No jewelry (including any body piercings) or valuables the day of surgery, leave them at home. Please take a shower or bath the night before, or the morning of, surgery with an antibacterial soap. Wear comfortable, loose fitting clothing. Children are encouraged to wear pajamas. - Jewelry must be removed prior to entering the operating room. Rings and piercings that are not removed may be cut off. - The hospital will not accept responsibility for valuables. - Please leave all valuables, including medications, at home the day of surgery. If you are going home after surgery, a licensed solo truck driver must drive you home. - NO public transportation without another adult if you receive anesthesia. - We recommend that an adult stay with you for 24 hours following discharge. - We also recommend that you do not drive, make important decision, drink alcoholic beverages, or take any drugs that were not prescribed by your health care provider for at least 24 hours after your discharge time. Follow any additional instructions given to you from your surgeon. If you or anyone in your household have experienced Covid symptoms in the past week, please notify your surgeon or the nurse liaison at the phone number below for possible testing. Telephone instructions given to __PATIENT and asked if any additional questions and then verbalized understanding. Patient advised to call surgeon office or pre surgery nurse liaison [phone] if any additional questions.
[2023-03-18] VITALS (8 sets, daily range): BP systolic 145–157; BP diastolic 71–97; PULSE 66–74; RESP 14–18; TEMP 36.2–36.7; O2SAT 99–100
--- NOTE | 2023-03-18 12:36 | WPDANESEPPF ---
Anes - Initial Pre Proc Eval Procedure: Operation Date: 03/18/23 14:00 Proposed Procedures p Re-Excision Anterior Margin Right Breast Lumpectomy - Leslie Shanks MD Date/Time: 03/18/23 12:36 Surgeon: Leslie Shanks MD Pre Op Diagnosis: intraductal CA insitu right breast Patient Data Age: 77 Gender: F Height: 1.75 m Weight: 101 kg Allergies Allergy/AdvReac Type Severity Reaction Status Date / Time poison rosalie extract Allergy Mild Rash Verified 03/18/23 12:31 Home Medications Medication Instructions Recorded Confirmed Type qxmeulgz-bywa-fcne 8 mg-folic 400 1 tablet PO DAILY 06/24/22 03/18/23 History mcg-K 50 mcg-lutein 300 mcg tablet (Centrum Silver Women) vitamin B complex (B 1 tablet PO DAILY 06/24/22 03/18/23 History Complex-Vitamin B12 tablet) aspirin 81 mg chewable tablet 81 mg PO DAILY@0800 #30 tabs 07/26/22 03/18/23 Rx (Children's Aspirin) metoprolol tartrate 25 mg tablet 25 mg PO Q12HR #180 tabs 01/06/23 03/18/23 Rx acetaminophen 650 mg 1,300 mg PO Q12H PRN Pain 03/02/23 03/18/23 History tablet,extended release (Tylenol Arthritis Pain) atorvastatin 10 mg tablet (Lipitor) 10 mg PO HS 03/02/23 03/18/23 History cholecalciferol (vitamin D3) 50 50 mcg PO DAILY 03/02/23 03/18/23 History mcg (2,000 unit) tablet hydroxyzine HCl 25 mg tablet 25 mg PO HS anxiety 03/02/23 03/18/23 History venlafaxine 150 mg 150 mg PO HS 03/02/23 03/18/23 History capsule,extended release 24 hr hydrochlorothiazide 25 mg tablet 25 mg PO QAM 03/17/23 03/18/23 History losartan 100 mg tablet 100 mg PO QAM 03/17/23 03/18/23 History Patient hx anesthesia problems: none Family hx anesthesia problems: none Results Review: All pre-operative results and documents have been reviewed as part of the pre-operative evaluation. [facility] Past Medical History Medical History (Updated 03/09/23 @ 14:44 by Michael Gonzales DO) Arthritis right knee High cholesterol History of TIA (transient ischemic attack) (~2011) Hypertension Microcalcification of right breast on mammogram NSAID long-term use daily aspirin 325mg PONV (postoperative nausea and vomiting) Screening mammogram, encounter for Surgical History Surgical History H/O right breast biopsy (01/07/23) stereotactic biopsy of lower inner quadrant right breast microcalcifications / Pathology ductal carcinoma in situ History of breast biopsy 1969 benign 1979 benign 07/10/08 left breast benign 05/02/09 left breast benign History of knee replacement, total (~12/09/15) right knee History of shoulder replacement (~12/08/17) left shoulder Family History Family History Mother Family history of malignant neoplasm of ovary Father Cerebrovascular accident Malignant neoplasm of pharynx Heart disease Sibling Hypertension sister Breast cancer sister Social History Social History Smoking status: Never smoker Second hand tobacco smoke exposure: No Alcohol intake: current Drinks per week: 10 Substance use: never Substance use type: does not use Lack of Transportation: No Lack of Food: Never True Current Housing: I Have Housing Concerned About Future Housing: No Difficulty Paying Gas/Electric Bills: No Difficulty Paying for Meds: No Currently Unemployed: No Education: High School Diploma/GED Difficulty w/ Childcare or Family Care: No Living arrangements: alone Additional living arrangements comments: Occupation/Education: occupation 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cerns: No Anes - Eval Final PreProcedure Day of Procedure
[2023-03-18] MEDS: ACETAMINOPHEN 500 MG TABLET 1000 MG PO (12:42)
--- NOTE | 2023-03-18 12:46 | WPDHPUPDATE1 ---
History and Physical Update Update Date/Time: 03/18/23 12:46 History and Physical has been reviewed, including an updated exam of the patient. There are NO changes in the patient's condition. Risks, benefits, and alternatives have been discussed and questions answered. Patient agrees to proceed with procedure.
[2023-03-18] MEDS: LACTATED RINGERS 1,000 ML 30 ML IV CONT (12:56)
[2023-03-18] MEDS: ceFAZolin 2 GM/D5W 50 ML 2 GM/50 ML BAG IVPB (13:20)
[2023-03-18] MEDS: BUPIVACAINE/EPINEPHRINE 0.25% 50 ML VIAL 40 ML INFILTRATE (13:28)
--- NOTE | 2023-03-18 14:09 | P.OP_ITS ---
Procedure Note - Detailed Date of Procedure 03/18/23 Pre-op Diagnosis Right breast ductal carcinoma in situ Post-op Diagnosis Same Procedure Performed Re-excision of anterior margin of right breast lumpectomy Surgeon Leslie Shakns MD Milk Wagon Driver Yane Membreno PA-C Anesthesia General Indications 77-year-old female with previous history of right breast DCIS status post right lumpectomy 1 week ago who was found to have a close anterior margin. Final path report showed DCIS nuclear grade 3, solid, cribriform, micro papillary type with comedonecrosis, DCIS was present less than 1 mm from anterior margin but all margins negative. Estimated size of DCIS was at least 30 mm. Given the close anterior margin as well as high nuclear grade and comedonecrosis, patient was recommended to go back to the OR for re-excision of anterior margin to decrease local recurrence rate. Risks of the procedure were discussed with the patient which included but not limited to risk of bleeding, infection, positive margin, possible need for additional procedures in the future, recurrence, scar, asymmetry, wound healing problems, pain as well as the risk of anesthesia. All questions were answered patient agrees to proceed. Description of Procedure Patient was identified in the preoperative holding area and brought to the operating room sleep. She was laid supine on the operating table and sequential compression devices were applied. Anesthesia was induced without difficulty. The right chest area was prepped and draped in a sterile fashion. The previous incision was reopened using a 15 blade and patient was noted to have a small to medium size old hematoma from the previous lumpectomy incision. This was evacuated and the previous lumpectomy cavity was entered. A shaven biopsy was taken of the anterior surface of the cavity using a 15 blade. This was sent to pathology as 2 specimen, 1 for the anterior inferior margin and the 2nd for the anterior superior margin. The cavity was irrigated with saline and hemostasis was assured. The deep dermal layer was approximated with interrupted 3-0 Vicryl and the skin was closed again with 4-0 Monocryl in a subcuticular fashion. Dermabond was applied followed by a sterile dressing and a surgical bra. Patient was awoken from anesthesia and taken to the recovery in stable condition. All needles, instruments, and sponge counts were correct as reported by the operating room staff. Patient tolerated the procedure well with no immediate complications. Yane Membreno PA-C was required for positioning and retraction for the duration of the procedure. Estimated Blood Loss 5 Pathology Yes Complications No immediate complications Condition Stable Disposition PACU [facility] Billing Surgery - Charge Forward: Surgery Billing
--- NOTE | 2023-03-18 14:21 | PM.OP ---
Procedure Note - Brief Procedure Note - Brief Date of procedure: 03/18/23 intraductal CA insitu right breast Post-op diagnosis: Same Procedure performed: Re-excision of anterior margin of right breast lumpectomy Surgeon: Leslie Shanks MD Environmental Conservation Officer: Yane Membreno PA-C Anesthesia: GLMA Estimated blood loss (mL): 5 Drains: No Pathology: Yes Complications: No immediate complications Condition: Stable Disposition: PACU
== END 2023-03-18 15:55 | disposition home or self-care (01) ==
PROVIDERS: PCP Emergency Medicine; Visit Provider Surgery
PROC: (CPT 19301; principal; 2023-03-18 14:00)
DX: D05.11 Intraductal carcinoma in situ of right breast (principal); I10 Essential (primary) hypertension; E78.00 Pure hypercholesterolemia, unspecified; Z86.73 Personal history of transient ischemic attack (TIA), and cerebral infarction without residual deficits; Z79.82 Long term (current) use of aspirin; E66.9 Obesity, unspecified; Z68.32 Body mass index [BMI] 32.0-32.9, adult
CPT/HCPCS: 19301; 88307; A9270; J0690; J1100; J2405; J2704; J7120

== ENCOUNTER 2023-04-28 08:26 | Outpatient (CLI) | payer OTHER, MEDICARE, SELFPAY ==
[2023-04-28 08:39] LABS: Basophils Percent Auto 0.7 % (0.2-1.2); Eosinophils Absolute Auto 0.2 K/mm3 (0-0.3); Eosinophils Percent Auto 3.1 % (0-4.4); Hematocrit 38.2 % (37.0-47.0); Hemoglobin 12.4 g/dL (12.0-15.0); Immature Granulocyte Absolute 0.01 K/mm3 (0.00-0.031); Immature Granulocyte Percent A 0.2 % (0-0.5); Lymphocytes Absolute Auto 1.07 K/mm3 (0.9-3.2); Lymphocytes Percent Auto 18.4 % (18.3-44.2); Mean Corpuscular HGB Conc 32.5 g/dl (32-36); Mean Corpuscular Hemoglobin 29.9 pg (26-34); Mean Platelet Volume 9.1 fl (7.4-10.4); Monocytes Absolute Auto 0.5 K/mm3 (0.1-0.6); Monocytes Percent Auto 7.7 % (2.6-8.5); Neutrophils Absolute Auto 4.1 K/mm3 (1.3-6.7); Neutrophils Percent Auto 69.9 % (45.5-73.1); Platelet Count Result 265 k/mm3 (150-375); Red Blood Count 4.15 M/mm3 (4.2-5.4); Red Cell Distribution Width 13.4 % (11.5-14.5); White Blood Count 5.8 K/mm3 (4.5-10.0)
[2023-04-28 08:44] LABS: Blood Urea Nitrogen 13 mg/dL (8-26); Carbon Dioxide 24 mmol/L (22-30); Chloride 105 mmol/L (98-109); Estimated Glomerular Filt Rate > 60; Glucose 132 mg/dL (70-105); Potassium 4.3 mmol/L (3.5-4.9); Sodium 142 mmol/L (138-146)
[2023-04-28 12:35] LABS: Alanine Aminotransferase 25 U/L (6-35); Albumin Level 4.3 g/dL (3.5-5.1); Alkaline Phosphatase 99 U/L (38-126); Anion Gap 9 mmol/L (8-16); Aspartate Amino Transferase 27 U/L (14-36); Bilirubin,Total 0.9 mg/dL (0.2-1.3); Blood Urea Nitrogen 13 mg/dL (7-17); Calcium 8.9 mg/dL (8.4-10.2); Carbon Dioxide 24 mmol/L (22-30); Chloride 106 mmol/L (98-107); Estimated Glomerular Filt Rate > 60; Glucose 126 mg/dL (65-110); Potassium 4.3 mmol/L (3.4-5.0); Sodium 139 mmol/L (137-145)
== END 2023-04-28 08:27 | disposition home or self-care (01) ==
LOC: ANHLAB 08:28
PROVIDERS: PCP Emergency Medicine; Visit Provider Internal Medicine Hematology & Oncology
DX: D05.10 Intraductal carcinoma in situ of unspecified breast (principal)
CPT/HCPCS: 36415; 80047; 80053; 85025

== ENCOUNTER 2023-06-10 10:02 | Outpatient (CLI) | payer OTHER, MEDICARE, SELFPAY ==
[2023-06-10 10:18] LABS: Basophils Percent Auto 0.5 % (0.2-1.2); Eosinophils Absolute Auto 0.3 K/mm3 (0-0.3); Eosinophils Percent Auto 4.1 % (0-4.4); Hematocrit 37.1 % (37.0-47.0); Hemoglobin 12.5 g/dL (12.0-15.0); Immature Granulocyte Absolute 0.03 K/mm3 (0.00-0.031); Immature Granulocyte Percent A 0.5 % (0-0.5); Lymphocytes Absolute Auto 1.47 K/mm3 (0.9-3.2); Lymphocytes Percent Auto 23.2 % (18.3-44.2); Mean Corpuscular HGB Conc 33.7 g/dl (32-36); Mean Corpuscular Hemoglobin 29.8 pg (26-34); Mean Corpuscular Volume 88.3 fl (80-100); Mean Platelet Volume 8.9 fl (7.4-10.4); Monocytes Absolute Auto 0.6 K/mm3 (0.1-0.6); Neutrophils Percent Auto 62.7 % (45.5-73.1); Platelet Count Result 255 k/mm3 (150-375); Red Cell Distribution Width 13.5 % (11.5-14.5); White Blood Count 6.3 K/mm3 (4.5-10.0)
[2023-06-10 10:24] LABS: Blood Urea Nitrogen 13 mg/dL (8-26); Carbon Dioxide 24 mmol/L (22-30); Chloride 103 mmol/L (98-109); Estimated Glomerular Filt Rate > 60; Glucose 113 mg/dL (70-105); Ionized Calcium (POC) 1.17 mmol/L (1.11-1.31); Potassium 3.8 mmol/L (3.5-4.9); Sodium 141 mmol/L (138-146)
[2023-06-10 12:00] LABS: Alanine Aminotransferase 27 U/L (6-35); Albumin Level 4.4 g/dL (3.5-5.1); Alkaline Phosphatase 105 U/L (38-126); Anion Gap 6 mmol/L (8-16); Aspartate Amino Transferase 28 U/L (14-36); Bilirubin,Total 0.8 mg/dL (0.2-1.3); Blood Urea Nitrogen 14 mg/dL (7-17); Calcium 9.1 mg/dL (8.4-10.2); Carbon Dioxide 24 mmol/L (22-30); Chloride 106 mmol/L (98-107); Estimated Glomerular Filt Rate > 60; Glucose 111 mg/dL (65-110); Potassium 3.8 mmol/L (3.4-5.0); Sodium 136 mmol/L (137-145)
== END 2023-06-10 10:03 | disposition home or self-care (01) ==
LOC: ANHLAB 10:05
PROVIDERS: PCP Emergency Medicine; Visit Provider Internal Medicine Hematology & Oncology
DX: D05.10 Intraductal carcinoma in situ of unspecified breast (principal)
CPT/HCPCS: 36415; 80047; 80053; 85025

== ENCOUNTER 2023-09-04 10:44 | Outpatient (CLI) | payer OTHER, MEDICARE, SELFPAY ==
--- NOTE | ~2023-09-04 | DEXA_ITS ---
Bone Density Report Name: TRISHA HARE Age: 77 Sex: Female Ethnicity: White Date of : 1945 Indication: postmenopausal; screening for osteoporosis; height loss; cancer; asthma or emphysema; Referring Provider: TWIN BLUNT Study: Bone densitometry was performed. Exam Date: September 04, 2023 Accession number: [id number] Bone Density: Region BMD T-score Z-score Classification AP Spine(L1-L4) 0.937 -1.0 1.4 Normal Femoral Neck (Left) 0.564 -2.6 -0.5 Osteoporosis Total Hip (Left) 0.695 -2.0 -0.2 Osteopenia Femoral Neck (Right) 0.527 -2.9 -0.8 Osteoporosis Total Hip (Right) 0.556 -3.2 -1.3 Osteoporosis Total Hip Mean 0.626 -2.6 -0.8 Osteoporosis World Health Organization criteria for BMD impression classify patients as: Normal (T-score at or above -1.0), Osteopenia (T-score between -1.0 and -2.5), or Osteoporosis (T-score at or below -2.5). 10-year Fracture Risk: FRAX not reported because: Some T-score for Spine Total or Hip Total or Femoral Neck at or below -2.5 Clinical Information Provided by Patient: Has used the following medications: Vitamin D, multi vitamin Has the following medical conditions: Asthma or Emphysema, Cancer Patient maximum height was 71.0 Menopause Age: 42 No regular weight bearing exercise Drinks caffeinated beverages Onset of menses at age 19 Number of children 2 Impression: The patient has osteoporosis, based on the Right Total Hip T-score. Discussion: INCREASED RISK OF FRACTURE. BONE DENSITY IS UNDESIRABLY LOW AT ONE OR MORE SKELETAL SITES, CONSISTENT WITH POSTMENOPAUSAL OSTEOPOROSIS. This patient's lowest T-score meets the World Health Organization's (WHO) criteria for osteoporosis at one or more sites (T-score -2.5 or below). In untreated patients, the risk of osteoporotic fracture increases approximately two-fold for each 1.0 SD decrease in T-score. Low bone density is not the only risk factor for fracture; also consider factors such as patient's age, frailty or poor health, risk of falling, risk of injury, previous osteoporotic fracture, family history of osteoporosis, cigarette smoking, low body weight, etc. Not everyone with low bone mineral density has osteoporosis; osteomalacia and other metabolic bone disorders should also be considered. Patients who have osteoporosis should be evaluated for specific diseases and conditions (secondary causes) that may cause or contribute to bone loss. The [place] [employer] Endocrinologists (AACE) and National Osteoporosis Foundation (NOF) recommend pharmacologic intervention for all postmenopausal women whose T-score is in this range. The patient should follow a healthful lifestyle (good nutrition with adequate calcium and vitamin D, and appropriate weight-bearing exercise). Follow-Up: Consider a repeat BMD
== END 2023-09-04 10:45 | disposition home or self-care (01) ==
LOC: ANHIMG 10:46
PROVIDERS: PCP Emergency Medicine; Visit Provider Internal Medicine Hematology & Oncology
DX: M81.0 Age-related osteoporosis without current pathological fracture (principal); M85.89 Other specified disorders of bone density and structure, multiple sites
CPT/HCPCS: 77080

== ENCOUNTER 2023-09-11 08:16 | Outpatient (CLI) | payer OTHER, MEDICARE, SELFPAY ==
[2023-09-11 08:32] LABS: Basophils Percent Auto 0.5 % (0.2-1.2); Eosinophils Absolute Auto 0.1 K/mm3 (0-0.3); Eosinophils Percent Auto 1.7 % (0-4.4); Hematocrit 36.8 % (37.0-47.0); Hemoglobin 12.6 g/dL (12.0-15.0); Immature Granulocyte Absolute 0.01 K/mm3 (0.00-0.031); Immature Granulocyte Percent A 0.2 % (0-0.5); Lymphocytes Absolute Auto 1.17 K/mm3 (0.9-3.2); Lymphocytes Percent Auto 20.2 % (18.3-44.2); Mean Corpuscular HGB Conc 34.2 g/dl (32-36); Mean Corpuscular Hemoglobin 29.6 pg (26-34); Mean Corpuscular Volume 86.6 fl (80-100); Mean Platelet Volume 8.6 fl (7.4-10.4); Monocytes Absolute Auto 0.5 K/mm3 (0.1-0.6); Neutrophils Percent Auto 69.4 % (45.5-73.1); Platelet Count Result 311 k/mm3 (150-375); Red Blood Count 4.25 M/mm3 (4.2-5.4); White Blood Count 5.8 K/mm3 (4.5-10.0)
[2023-09-11 08:41] LABS: Blood Urea Nitrogen 12 mg/dL (8-26); Carbon Dioxide 26 mmol/L (22-30); Chloride 97 mmol/L (98-109); Estimated Glomerular Filt Rate 54; Glucose 113 mg/dL (70-105); Ionized Calcium (POC) 1.17 mmol/L (1.11-1.31); Potassium 3.9 mmol/L (3.5-4.9); Sodium 134 mmol/L (138-146)
[2023-09-11 10:13] LABS: Alanine Aminotransferase 20 U/L (6-35); Albumin Level 4.1 g/dL (3.5-5.1); Alkaline Phosphatase 91 U/L (38-126); Anion Gap 9 mmol/L (8-16); Aspartate Amino Transferase 25 U/L (14-36); Bilirubin,Total 0.7 mg/dL (0.2-1.3); Blood Urea Nitrogen 13 mg/dL (7-17); Calcium 9.6 mg/dL (8.4-10.2); Carbon Dioxide 25 mmol/L (22-30); Chloride 98 mmol/L (98-107); Estimated Glomerular Filt Rate > 60; Glucose 113 mg/dL (65-110); Potassium 4.1 mmol/L (3.4-5.0); Sodium 132 mmol/L (137-145)
== END 2023-09-11 08:17 | disposition home or self-care (01) ==
LOC: ANHLAB 08:19
PROVIDERS: PCP Emergency Medicine; Visit Provider Internal Medicine Hematology & Oncology
DX: D05.10 Intraductal carcinoma in situ of unspecified breast (principal)
CPT/HCPCS: 36415; 80047; 80053; 85025

== ENCOUNTER 2023-11-10 10:29 | Outpatient (CLI) | payer OTHER, MEDICARE, SELFPAY ==
--- NOTE | ~2023-11-10 | MM_ITS ---
EXAMINATION: MM diagnostic james BI w [facility] HISTORY: History of right breast cancer status post radiation TECHNIQUE: Additional 3-D tomosynthesis images of the breasts were performed and synthetic 2-D images were generated. CAD analysis was submitted and interpreted. COMPARISON: Comparison to multiple prior studies sequentially, with oldest reviewed study dated 12/02. BREAST PARENCHYMAL COMPOSITION: Not dense: There are scattered areas of fibroglandular density. FINDINGS: There are postoperative changes in the right breast, consistent with previous lumpectomy wi th increased density of the right breast, consistent with radiation therapy change. The left breast i s stable without evidence for malignancy. IMPRESSION: 1. Probable postoperative change of the right breast. No evidence for malignancy in the left breast. 2. Recommend 6 month follow-up diagnostic right mammogram BI-RADS category 3, probably benign findings. Reviewed, dictated and finalized at location A. IMPRESSION: 1. Probable postoperative change of the right breast. No evidence for malignanc y in the left breast. 2. Recommend 6 month follow-up diagnostic right mammogram BI-RADS category 3, probably benign findings.
== END 2023-11-10 10:30 | disposition home or self-care (01) ==
PROVIDERS: Visit Provider Physician Assistant Surgical
DX: D05.11 Intraductal carcinoma in situ of right breast (principal); R92.8 Other abnormal and inconclusive findings on diagnostic imaging of breast
CPT/HCPCS: 77062; 77066; G0279

== ENCOUNTER 2024-05-11 10:55 | Outpatient (CLI) | payer OTHER, MEDICARE, SELFPAY ==
--- NOTE | ~2024-05-11 | MM_ITS ---
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 TECHNIQUE: Additional 3-D tomosynthesis images of the breasts were performed and synthetic 2-D images were generated. CAD analysis was submitted and interpreted. COMPARISON: Comparison to multiple prior studies sequentially, with oldest reviewed study dated 12/02. BREAST PARENCHYMAL COMPOSITION: Dense: The breasts are heterogeneously dense, which may obscure small masses FINDINGS: Not dense: There are scattered areas of fibroglandular density. Stable postoperative change in the central aspect of the right breast with associated clips and architectural distortion. The le ft breast is stable without evidence for malignancy. IMPRESSION: 1. Stable bilateral mammogram without evidence for malignancy. 2. Routine yearly screening mammogram and regular clinical breast examination are recommended. BI-RADS Category 2: Benign finding(s). Reviewed, dictated and finalized at location B. IMPRESSION: 1. Stable bilateral mammogram without evidence for malignancy. 2. Routine yearly screening mammogram and regular clinical breast examination a re recommended. BI-RADS Category 2: Benign finding(s).
== END 2024-05-11 10:56 | disposition home or self-care (01) ==
LOC: ANHIMG 10:57
PROVIDERS: PCP Emergency Medicine; Visit Provider Physician Assistant Surgical
DX: D05.11 Intraductal carcinoma in situ of right breast (principal); R92.8 Other abnormal and inconclusive findings on diagnostic imaging of breast
CPT/HCPCS: 77062; 77066; G0279

== ENCOUNTER 2024-07-22 11:20 | Outpatient (CLI) | payer OTHER, MEDICARE, SELFPAY ==
[2024-07-22 11:33] LABS: Basophils Percent Auto 0.5 % (0.2-1.2); Eosinophils Absolute Auto 0.2 K/mm3 (0-0.3); Eosinophils Percent Auto 2.7 % (0-4.4); Hematocrit 34.8 % (37.0-47.0); Hemoglobin 11.4 g/dL (12.0-15.0); Immature Granulocyte Absolute 0.03 K/mm3 (0.00-0.031); Immature Granulocyte Percent A 0.4 % (0-0.5); Lymphocytes Absolute Auto 2.11 K/mm3 (0.9-3.2); Lymphocytes Percent Auto 28.8 % (18.3-44.2); Mean Corpuscular HGB Conc 32.8 g/dl (32-36); Mean Corpuscular Hemoglobin 30.2 pg (26-34); Mean Corpuscular Volume 92.1 fl (80-100); Mean Platelet Volume 8.8 fl (7.4-10.4); Monocytes Absolute Auto 0.6 K/mm3 (0.1-0.6); Monocytes Percent Auto 7.5 % (2.6-8.5); Neutrophils Absolute Auto 4.4 K/mm3 (1.3-6.7); Neutrophils Percent Auto 60.1 % (45.5-73.1); Platelet Count Result 234 k/mm3 (150-375); Red Blood Count 3.78 M/mm3 (4.2-5.4); Red Cell Distribution Width 13.1 % (11.5-14.5); White Blood Count 7.3 K/mm3 (4.5-10.0)
[2024-07-22 11:37] LABS: Blood Urea Nitrogen 21 mg/dL (8-26); Carbon Dioxide 23 mmol/L (22-30); Chloride 105 mmol/L (98-109); Estimated Glomerular Filt Rate 54; Glucose 95 mg/dL (70-105); Ionized Calcium (POC) 1.18 mmol/L (1.11-1.31); Potassium 3.9 mmol/L (3.5-4.9); Sodium 140 mmol/L (138-146)
--- OUTSIDE RECORDS SUMMARY | 2024-07-22 12:38 | XMS_ITS | CONTINUITY OF CARE DOCUMENT ---
Author Name cory ray Address Unknown Organization [facility] Address [address] [address] [place] [address] Phone [phone] Care Team Providers Care Customer Service Dispatcher Name Role Phone cory ray Unavailable Unavailable INSURANCE PROVIDERS Payer name Policy type / Coverage type Judah red green party ID [employer] [facility] Other [id number]
--- OUTSIDE RECORDS SUMMARY | 2024-07-22 12:39 | XMS_ITS | Data Portability ---
Author Organization [facility] [employer], Main Office Address [address] [place] [address] Assessment No assessment recorded. Plan of Treatment Reminders Order Date Submit Date Provider Last Modified By Organization Details Last Modified Time Details Appointments None record ed. Lab None record ed. Referral None record ed. Procedures None record ed. Surgeries None record ed. Imaging None record ed. Medication Orders None record ed. Patient TargetsNo targets recorded. Patient InstructionsNo instructions recorded. Reason for Referral None Reported. Results Created Date Observation Date Name Description Value Unit Range Abnormal Flag Note LastModifiedBy Organization Detail LastModifiedTime 06/10/20 21 06/10/2021 MAMMO , diagn ostic , bilat eral No observ ation record ed. [id number], [address], 10/08/2022 02:46:47 11/22/19 22 03/16/2020 compl ete PFT w/ post [facility] hodil ator nuria metry * No observ ation record ed. [id number] [facility] Registration Dept. [address] [place] [address], [address], 10/08/2022 02:46:47 Result Notes None recorded. Problems Name Problem SNOMED Code Status Onset Date Resolution Date Notes Provider Name and Address Organization Details Recorded Time Localize d, primary osteoart hritis of the shoulder region 570806068 Active 2020 Not Available [facility] 3 02:39:26 Atrophic (senile) emphysem a 980128483 Active 2019 Not Available [facility] 3 02:39:26 Dysphagi a 06286812 Active 2019 Not Available [facility] 3 02:39:26 Emotiona l stress 887849777 Active 2017 Crying easily and stressed over sister's breast CA. Meds started 2017 Not Available [facility] 3 02:39:26 Cough 50296054 Completed 201903/21/2021 Not Available [facility] 3 02:39:26 Hyperlip idemia 08226513 Active 2019 Not Available [facility] 3 02:39:26 [facility] hyperten giuliana 74128314 Active 2019 Not Available [facility] 3 02:39:26 Chronic cough 43524773 Active 2019 Not Available [facility] 3 02:39:26 Problem Notes None recorded. Procedures Surgical History Date Name Laterality Status Provider Name and Address Organization Details Recorded Time 01/09/20 19 Date of Last Colonoscopy completed Not Available [facility] 10/08/2022 02:34:19 12/09/19 18 total shoulder replacement completed Not Available [facility] 10/08/2022 02:34:23 12/09/19 16 total knee replacement completed Not Available [facility] 10/08/2022 02:34:23 04/20/20 12 Most Recent Bone Density completed Not Available [facility] 10/08/2022 02:34:19 05/02/20 09 Unlisted procedure breast completed Not Available [facility] 10/08/2022 02:34:23 07/10/20 08 Breast Biopsy completed Not Available [facility] 2022 02:34:23 08/10/18 79 Breast Biopsy completed Not Available [facility] 2022 02:34:23 08/10/18 69 Breast Biopsy completed Not Available [facility] 2022 02:34:23 Imaging Results Imaging Date Name Status LastModified by Organization Details LastModified Time 03/16/2020 complete PFT w/ post bronchodilator spirometry* completed [id number] [facility] Registration Dept. [address] [place] [address], [address], 10/08/2022 02:46:47 06/10/2021 MAMMO, diagnostic, bilateral completed [id number] [facility] [address], [place], [address], 10/08/2022 02:46:47 Procedure Notes None recorded. Medical Equipment None Reported. Medications Name Sig Start Date Stop Date Status Note LastModified by Organization Details LastModified Time anastrozo le 1 mg tablet active Not Available Not Available Not Available venlafaxi ne ER 75 mg capsule,e xtended release 24 hr take one capsule by mouth daily 06/08 completed Not Available Not Available Not Available atorvasta tin 10 mg tablet TAKE 1 TABLET BY MOUTH EVERY DAY active Not Available Not Available No t Available aspirin 325 mg tablet Take 1 tablet every day by oral route as directed . 2019 active Not Available Not Available Not Avai lable senna 8.6 mg tablet TAKE 1 TABLET BY MOUTH AT BEDTIME active Not Available Not Available No t Available venlafaxi ne ER 150 mg capsule,e xtended release 24 hr TAKE 1 CAPSULE BY MOUTH DAILY active Not Available Not Available No t Available warfarin 2.5 mg tablet active Not Available Not Available Not Available penicilli n V potassium 500 mg tablet 03/14 completed Not Available Not Available Not Available Advair Diskus 100 mcg-50 mcg/dose powder for inhalatio n Inhale 1 puff twice a day by inhalati on route as directed for 90 days. 04/22 completed Not Available Not Available Not Available amlodipin e 5 mg tablet Take one tab po qd active Not Available Not Available No t Available peg-elect rolyte solution 420 gram oral solution 12/05 completed Not Available Not Available Not Available aspirin 81 mg tablet,de layed release 03/14 completed Not Available Not Available Not Available tramadol 50 mg tablet TAKE 1 TABLET BY MOUTH EVERY 6 HOURS NEEDED FOR PAIN active Not Available Not Available No t Available Nexium 20 mg capsule,d elayed release Take 1 capsule every day by oral route. 04/22 completed Not Available Not Available Not Available losartan 100 mg-hydroc hlorothia zide 25 mg tablet TK 1 T PO QD active Not Available Not Available No t Available benzonata te 100 mg capsule TK 1 C PO TID PRN 04/03 completed Not Available Not Available Not Available hydrocodo ne 7.5 mg-acetam inophen 325 mg tablet 03/14 completed Not Available Not Available Not Available tobramyci n 0.3 % eye drops INSTILL 2 DROPS IN OU QID UNTIL CLEAR active Not Available Not Available No t Available triamcino lone acetonide 0.1 % topical ointment APPLY TO THE AFFECTED AREA TWICE DAILY NEEDED active Not Available Not Available No t Available lisinopri l 10 mg tablet TK 1 T PO D active Not Available Not Available No t Available Advair Diskus 250 mcg-50 mcg/dose powder for inhalatio n Inhale 1 puff twice a day by inhalati on route. 10/25 completed Internal note: Meidcait on never startedE xternal note: Use as directed . rinse mouth after each inhalati on Not Available Not Available Not Available monteluka st 10 mg tablet TK 1 T PO QD 04/03 completed Not Available Not Available Not Available hydroxyzi ne HCl 25 mg tablet TAKE 1 TABLET BY MOUTH THREE TIMES DAILY NEEDED FOR ANXIETY active Not Available Not Available No t Available hydrochlo rothiazid e 25 mg tablet TAKE 1 TABLET BY MOUTH DAILY active Not Available Not Available No t Available metoprolo l succinate ER 25 mg tablet,ex tended release 24 hr TAKE 1 TABLET BY MOUTH DAILY active Not Available Not Available No t Available albuterol sulfate HFA 90 mcg/actua tion aerosol inhaler INL 2 PFS PO Q 4 H PRN 04/22 completed Not Available Not Available Not Available losartan 50 mg-hydroc hlorothia zide 12.5 mg tablet 12/05 completed Not Available Not Available Not Available hydroxyzi ne HCl 10 mg tablet TAKE 1 TO 3 TABLETS BY MOUTH AT BEDTIME NEEDED 04/22 completed Not Available Not Available Not Available ondansetr on 4 mg disintegr ating tablet DISSOLVE 1 TABLET ON THE TONGUE EVERY 8 HOURS NEEDED FOR NAUSEA OR VOMITING active Not Available Not Available No t Available losartan 100 mg tablet TAKE 1 TABLET BY MOUTH EVERY MORNING active Not Available Not Available No t Available fluticaso ne propionat e 50 mcg/actua tion nasal spray,chema pension SHAKE LQ AND U 2 SPRAYS IEN QD 12/05 completed Not Available Not Available Not Available naproxen 500 mg tablet TK 1 T PO BID WITH FOOD 03/14 completed Not Available Not Available Not Available metoprolo l tartrate 25 mg tablet TAKE 1 TABLET BY MOUTH EVERY 12 HOURS active Not Available Not Available No t Available Spiriva with [employer] r 18 mcg and inhalatio n capsules Inhale 1 capsule every day by inhalati on route as directed for 90 days. 04/22 completed Not Available Not Available Not Available Advil 11/07 completed FOR ARTHRITI S Not Available Not Available Not Available Tylenol 2019 active FOR HER HEADACHE S FROM THE COUGHING Not Available Not Available Not Available [place] Saline Nasal Neti Rinse with packet Take 1 packet by nasal route. 04/03 completed Not Available Not Available Not Available Allergy Relief (fexofena dine) 180 mg tablet TAKE 1 TABLET BY MOUTH EVERY DAY 04/22 completed Not Available Not Available Not Available Vitamin B12 1000MCG DAILY 11/07 completed Not Available Not Available Not Available BinaxNOW COVID-19 Ag Self Test kit TEST DIRECTED TODAY active Not Available Not Available No t Available Paxlovid 300 mg (150 mg x 2)-100 mg tablets in a dose pack TAKE 2 NIRMATRE LVIR TABLETS AND 1 RITONAVI R TABLET TOGETHER BY MOUTH TWICE DAILY FOR 5 DAYS. DO NOT TAKE CHOLESTE ROL MEDICINE FOR 7 DAYS active Not Available Not Available No t Available Vitals Date Recorded Body mass index (BMI) Body height Oxygen saturation Oxygen saturation in Arterial blood by Pulse oximetry Heart rate Body temperature Body weight Systolic blood pressure Diastolic blood pressure Provider Name and Address Organization Details Last Updated DateTime 1 32.8 kg/m2 175.26 cm 99 % 99 % 92 /min 97.2 [degF] 317381. 51 g 132 mm[Hg] 84 mm[Hg] Not Available [facility] 3 02:34:55 Date Recorded Body mass index (BMI) Body height Oxygen saturation Oxygen saturation in Arterial blood by Pulse oximetry Heart rate Respiratory rate Body temperature Body weight Systolic blood pressure Diastolic blood pressure Provider Name and Address Organization Details Last Updated DateTime 1 33.1 kg/m2 175.26 cm 99 % 99 % 90 /min 16 /min 96.9 [degF] 349342. 69 g 152 mm[Hg] 84 mm[Hg] Not Available [facility] 3 02:34:55 Date Recorded Body mass index (BMI) Body height Oxygen saturation Oxygen saturation in Arterial blood by Pulse oximetry Heart rate Body temperature Body weight Systolic blood pressure Diastolic blood pressure Provider Name and Address Organization Details Last Updated DateTime 2 34.4 kg/m2 175.26 cm 99 % 99 % 78 /min 97 [degF] 377457. 02 g 110 mm[Hg] 60 mm[Hg] Not Available [facility] 3 02:34:55 Date Recorded Body mass index (BMI) Body height Oxygen saturation Oxygen saturation in Arterial blood by Pulse oximetry Heart rate Body temperature Body weight Systolic blood pressure Diastolic blood pressure Provider Name and Address Organization Details Last Updated DateTime 2 33.8 kg/m2 175.26 cm 97 % 97 % 86 /min 97.2 [degF] 213757. 65 g 142 mm[Hg] 86 mm[Hg] Not Available [facility] 3 02:34:55 Date Recorded Body temperature Provider Name a nd Address Organization Details Last Updated DateTime 06/15/2023 97.9 [degF] Alessandra Cruz MA [facility] [employer] 06/15/2023 11:52:42 Date Recorded Body weight Heart rate Oxygen saturation Oxygen saturation in Arterial blood by Pulse oximetry Systolic blood pressure Diastolic blood pressure Provider Name and Address Organization Details Last Updated DateTime 3 654608. 88 g 63 /min 97 % 97 % 132 mm[Hg] 80 mm[Hg] Demi Chavez [place] [facility] [place] [employer] 3 12:09:16 Social History Question Answer Notes LastModified by Organizat ion Details LastModified Time Tobacco Smoking Status Never Smoker Not Available [facility] 10/08/2022 02:27:52 Do You Have An Advance Directive? Yes [id number] Information not available 10/08/2022 What Is Your Level Of Alcohol Consumption? Moderate MIGRATION.[id number] Information not available 10/08/2022 How Many Years Have You Consumed Alcohol? 1 MIGRATION.031689 5598 Information not available 10/08/2022 Are You Blind Or Do You Have Difficulty Seeing? No MIGRATION.617587 7100 Information not available 10/08/2022 What Is Your Level Of Caffeine Consumption? Moderate MIGRATION.941385 1949 Information not available 10/08/2022 How Much Tobacco Do You Chew? None MIGRATION.378325 6993 Information not available 10/08/2022 In The 14 Days Before Symptom Onset, Have You Had Close Contact With A Laboratory-confir med COVID-19 While That Case Was Ill? No MIGRATION.101993 4229 Information not available 10/08/2022 In The 14 Days Before Symptom Onset, Have You Had Close Contact With A Person Who Is Under Investigation For COVID-19 While That Person Was Ill? No MIGRATION.509751 2936 Information not available 10/08/2022 Are You Deaf Or Do You Have Serious Difficulty Hearing? Yes MIGRATION.908629 9460 Information not available 10/08/2022 What Type Of Diet Are You Following? REGULAR MIGRATION.249037 1089 Information not available 10/08/2022 Which Illicit Or Recreational Drugs Have You Used? None MIGRATION.645969 3642 Information not available 10/08/2022 Do You Or Have You Ever Used E-cigarettes Or Vape? Never Used Electronic Cigarettes MIGRATION.789286 5448 Information not available 10/08/2022 What Is The Highest Grade Or Level Of School You Have Completed Or The Highest Degree You Have Received? [id number] MIGRATION.183242 6942 Information not available 10/08/2022 Do You Have An Electrostatic Air Filter? No MIGRATION.542812 3186 Information not available 10/08/2022 What Is Your Occupation? [employer] Work MIGRATION.582124 9580 Information not available 10/08/2022 Are There Any Guns Present In Your Home? No MIGRATION.217917 1891 Information not available 10/08/2022 Do You Have A Humidifier? Yes MIGRATION.845069 6181 Information not available 10/08/2022 Do You Have A Medical Power Of Hris Developer? Yes MIGRATION.872006 1559 Information not available 10/08/2022 Do You Have Moisture Problems In Your Home? No MIGRATION.806658 0712 Information not available 10/08/2022 What Was The Date Of Your Most Recent Tobacco Screening? 03/05/2021 MIGRATION.783846 0222 Information not available 10/08/2022 How Many Children Do You Have? 2 MIGRATION.255934 3189 Information not available 10/08/2022 Do You Have Any Pets? Yes MIGRATION.822558 3874 Information not available 10/08/2022 What Is Your Relationship Status? MIGRATION.201514 4991 Information not available 10/08/2022 Do You Use Your Seat Belt Or Car Seat Routinely? Yes MIGRATION.865532 4978 Information not available 10/08/2022 Do You Have Smoke And Carbon Monoxide Detectors In Your Home? Yes MIGRATION.784170 0610 Information not available 10/08/2022 Are You Passively Exposed To Smoke? Yes MIGRATION.333335 0730 Information not available 10/08/2022 Do You Or Have You Ever Used Smokeless Tobacco? Never Used Smokeless Tobacco MIGRATION.011154 2153 Information not available 10/08/2022 Do You Feel Stressed (tense, Restless, Nervous, Or Anxious, Or Unable To Sleep At Night)? [id number] MIGRATION.818093 9785 Information not available 10/08/2022 Do You Use Any Illicit Or Recreational Drugs? No MIGRATION.572483 6971 Information not available 10/08/2022 Do You Use Sunscreen Routinely? Yes MIGRATION.750172 6770 Information not available 10/08/2022 Have You Recently Traveled Abroad? No MIGRATION.373703 0873 Information not available 10/08/2022 Do You Have Any Dietary Restrictions? No MIGRATION.395318 1733 Information not available 10/08/2022 Do You Or Have You Ever Used Any Other Forms Of Tobacco Or Nicotine? No MIGRATION.810749 9463 Information not available 10/08/2022 Sex: Unknown Functional Status Question Answer Note LastModified by [employer] Info Details LastModified Time Do you have difficulty walking or climbing stairs? No MIGRATION.3621085 026 Information not available 10/08/2022 Do you have transportation difficulties? No MIGRATION.5108263 026 Information not available 10/08/2022 Are you able to walk? YESWOREST MIGRATION.5242678 026 Information not available 10/08/2022 Do you have difficulty doing errands alone? No MIGRATION.3805724 026 Information not available 10/08/2022 Are you able to care for yourself? Yes MIGRATION.1012505 026 Information not available 10/08/2022 Do you have difficulty dressing or bathing? No MIGRATION.8423005 026 Information not available 10/08/2022 What is your exercise level? Occasional MIGRATION.9354003 026 Information not available 10/08/2022 Mental Status Question Answer Note LastModified by Organizat ion Details LastModified Time Do you have difficulty concentrating, remembering or making decisions? No MIGRATION.490451914 6 Information not available 10/08/2022 Family History Relationship Description Onset Age of this Age Resolved Age Notes LastModified by Organization Details LastModified Time Father Cerebrovascu lar accident MIGRATION.777 [id number] Not available 10/08/2022 02:34:23 Father Heart disease MIGRATION.302 [id number] Not available 10/08/2022 02:34:23 Father Malignant tumor of pharynx MIGRATION.795 [id number] Not available 10/08/2022 02:34:23 Sister Hypertensive disorder MIGRATION.921 [id number] Not available 10/08/2022 02:34:23 Sister Malignant tumor of breast MIGRATION.041 [id number] Not available 10/08/2022 02:34:23 Mother Malignant tumor of ovary MIGRATION.171 [id number] Not available 10/08/2022 02:34:23 Medical History Condition Response HIGH CHOLESTEROL / HYPERLIPIDEMIA Y STROKE/TIA Y HYPERTENSION Y Gynecological History Statement/Question Response Abnormal Pap N Date of Last Mammogram 06/08/2020 Date of Last Colonoscopy 01/08/2019 Most Recent Bone Density 04/20/2012 Date of Last Pap 06/08/2020 Current Control Method Menopause Age at Menarche 18 Obstetrics History GPAL:G 3 P 2 0 1 2 Type Value Full Term 2 Spontaneous 1 Living 2 Total 3 Immunizations Vaccine Type Date Status Note Provider Nam e and Address Organization Details Recorded Time COVID-19, mRNA, LNP-S, PF, 30 mcg/0.3 mL dose 1 completed Not Available [facility] 10/08/2022 02:46:09 pneumococcal polysaccharide PPV23 3 completed Not Available [facility] 10/08/2022 02:46:09 Influenza, split virus, quadrivalent, preservative 0 completed Not Available [facility] 10/08/2022 02:46:09 zoster recombinant 1 completed Not Available [facility] 10/08/2022 02:46:09 Influenza, high-dose, quadrivalent, PF 1 completed Not Available [facility] 10/08/2022 02:46:10 zoster recombinant 1 completed Not Available [facility] 10/08/2022 02:46:10 pneumococcal polysaccharide PPV23 1 completed Not Available [facility] 10/08/2022 02:46:10 Influenza, high-dose, quadrivalent, PF 0 completed Not Available [facility] 10/08/2022 02:46:10 Influenza, high-dose, trivalent, PF 0 completed Not Available [facility] 10/08/2022 02:46:10 Past Encounters Encounter ID Performer Location Encounter Start Date Encounter Closed Date Diagnosis/Indication Diagnosis SNOMED-CT Code Diagnosis ICD10 Code [id number] [facility] [address] [place] [address] 11/07/2020 00:00:00 11/07/2020 20:45:51 [id number] _[facility] IGRATION_ DEFAULT_1 _1 , 11/20/2020 00:00:00 11/20/2020 18:07:43 [id number] [facility] [place] [address] [place] [address] 03/05/2021 00:00:00 03/05/2021 23:19:35 [id number] [facility] [place] [address] 03/21/2021 00:00:00 03/21/2021 16:41:45 [id number] [facility] [place] [address] 06/04/2021 00:00:00 06/05/2021 08:12:13 [id number] [facility] [place] [address] [place] [address] 10/14/2021 00:00:00 10/14/2021 16:38:24 [id number] [facility] [place] [address] [place] [address] 04/22/2022 00:00:00 04/22/2022 15:25:13 [id number] NOLAN GirardPDayanBC [facility] [place] [address] [place] [address] 06/15/2023 11:48:24 06/15/2023 12:46:54 Atrophic (senile) emphysema 327615954 J43.9 History of SARS-CoV-2 29 29775996 51811184 Z86.16 Health Concerns Section Related Observation LastModified by Organization Detai ls LastModified Time None Recorded Concern Status LastModified by Organization Details LastModified Time None Recorded Advance Directives Directive Y: Payers Encounter Date Sequence Insurance Name Policy Number Policy Salmon Covered Member ID Salmon Member ID Guarantor Name 06/15/2023 1 [facility] [id number] Cecelia Gutierres [id number] Cecelia Gutierres 06/15/2023 2 [place] Cecelia Gutierres [id number] Cecelia Gutierres Notes Date Note Type Note Provider Name and Address Organization Details Recorded Time 06/15/2023 text/html Cecelia presents today for follow up on emphysemaShjaki reports a difficult year, with subdural hematoma after a fall and a breast cancer DX with surgery and radiation.Also with COVID in AugustContinues to remain off maintenance inhalersShjaki thinks her rescue MDI is , she has not needed to use thisCough is very rareShe does not notice wheezing, tells me her daughter doesDyspnea with stairs, exertional activities, unchangedDenies chest tightness, hemoptysis, unintentional weight lossHas not had an exacerbation in the last 2 years requiring steroids or antibiotics Kary Freeman, [facility] [address] [facility] [address], [place], [address], [place] - [facility] 06/15/2023 16:06:22 OBGyn Episode No OBEpisode recorded.
[2024-07-22 16:28] LABS: Alanine Aminotransferase 23 U/L (6-35); Albumin Level 3.9 g/dL (3.5-5.1); Alkaline Phosphatase 63 U/L (38-126); Anion Gap 5 mmol/L (4-12); Aspartate Amino Transferase 50 U/L (14-36); Bilirubin,Total 0.6 mg/dL (0.2-1.3); Blood Urea Nitrogen 23 mg/dL (7-17); Calcium 8.9 mg/dL (8.4-10.2); Carbon Dioxide 25 mmol/L (22-30); Chloride 107 mmol/L (98-107); Estimated Glomerular Filt Rate > 60; Glucose 91 mg/dL (65-110); Potassium 3.9 mmol/L (3.4-5.0); Sodium 137 mmol/L (137-145)
== END 2024-07-22 11:21 | disposition home or self-care (01) ==
PROVIDERS: PCP Family Medicine; Visit Provider Internal Medicine Hematology & Oncology
DX: D05.10 Intraductal carcinoma in situ of unspecified breast (principal)
CPT/HCPCS: 36415; 80047; 80053; 85025

== ENCOUNTER 2025-01-24 09:44 | Outpatient (CLI) | payer MEDICARE, SELFPAY ==
--- NOTE | ~2025-01-24 | XR_ITS ---
Clinical Indication: Status post fall, rib pain PA and lateral views of the chest: Comparison: 07/14/2022 Findings: The lungs are clear, without evidence of focal consolidation or pleural effusion. Suspected COPD. Cardiomediastinal silhouette is within normal limits. No rib fracture seen. Left shoulder arth roplasty partially imaged. Impression: No acute abnormality. COPD. Reviewed, dictated and finalized at location . Impression: No acute abnormality. COPD.
== END 2025-01-24 09:45 | disposition home or self-care (01) ==
LOC: GOSHIMG 09:45
PROVIDERS: PCP Obstetrics & Gynecology; Visit Provider Obstetrics & Gynecology
DX: J44.9 Chronic obstructive pulmonary disease, unspecified (principal)
CPT/HCPCS: 71046

== ENCOUNTER 2025-06-14 08:51 | Outpatient (CLI) | payer MEDICARE, SELFPAY ==
--- NOTE | ~2025-06-14 | MM_ITS ---
EXAMINATION: screening [facility] BI w kelton INDICATION: Asymptomatic, referred for screening mammogram. Prior history of right partial mastectomy. COMPARISON: 12/02/2022 through 09/08/2017 TECHNIQUE: Digital Breast Tomosynthesis CC, MLO views of Both breasts were obtained with computer-aided detection to assist in interpretation of the study. FINDINGS: There are scattered areas of fibroglandular density. There is a focal asymmetry in the inferior medial left breast at middle third. Posttreatment changes in the right breast are unchanged. Elsewhere, there are no mammographic features of malignancy. IMPRESSION: 1. Left breast Focal asymmetry. Right breast benign post treatment changes. RECOMMENDATION: Left breast Diagnostic mammogram with true lateral, appropriate spot compression views and an ultrasound if needed. BI-RADS Category 0: Incomplete: Needs additional imaging evaluation. Reviewed, dictated and finalized at location B. [place] GROCER IMPRESSION: 1. Left breast Focal asymmetry. Right breast benign post treatment changes. RECOMMENDATION: Left breast Diagnostic mammogram with true lateral, appropriate spot compressio n views and an ultrasound if needed. BI-RADS Category 0: Incomplete: Needs additional imaging evaluation.
--- OUTSIDE RECORDS SUMMARY | 2025-06-14 09:16 | XMS_ITS | Clinical Summary ---
Author Organization [facility] Gino Taveras Address [address] [place] [address] Care Team Providers Care Corrugated Box Machine Operator Name Role Phone Mayi Dacosta MD Primary Care Provider [phone] Allergies No known active allergies Medications losartan 50 mg-hydrochlorot hiazide 12.5 mg tablet (HYZAAR) 1 Tablet. Acti ve atorvastatin (LIPITOR) 10 mg tablet Take 10 mg by mouth daily. Active aspirin (ECOTRIN EC) 81 mg Tablet, Delayed Release (E.C.) Take 81 mg by mouth daily. Active hydroCHLOROthia zide 25 mg tablet Take 25 mg by mouth daily. Active magnesium oxide 400 mg magnesium Tablet Take by mouth. Active ascorbic acid (VITAMIN C) 500 mg Tablet, Chewable Take 500 mg by mouth. Active metFORMIN (GLUCOPHAGE) 500 mg tablet Take 1 Tablet by mouth daily. 07/31/2023 Active metoprolol tartrate (LOPRESSOR) 25 mg tablet Take 25 mg by mouth every 12 hours. Active tamoxifen (NOLVADEX) 20 mg tablet Take 1 Tablet (20 mg) by mouth daily. 90 Tablet 3 07/22/2024 Active DULoxetine (CYMBALTA) 30 mg Capsule, Delayed Release(E.C.) Take 1 Capsule by mouth daily. 11/22/2024 Active Active Problems No known active problems Encounters Date Type Department Care Team Description 05/30/2025 External Device Data STL ABSTRACTION Provider, Abstract 05/16/2025 External Device Data STL ABSTRACTION Provider, Abstract 04/25/2025 Orders Only [facility] - [place] [address] [place] [address] Cr Mendez MD 04/18/2025 External Device Data STL ABSTRACTION Provider, Abstract 04/11/2025 External Device Data STL ABSTRACTION Provider, Abstract 03/28/2025 External Device Data STL ABSTRACTION Provider, Abstract from Last 3 Months Family History Medical History Relation Name Comments Diabetes Father Esophageal Cancer Father Ovarian Cancer Mother Breast Cancer Sister Relation Name Status Comments Daughter Alive Father Mother Sister Alive Son Alive Social History Tobacco Use Types Packs/Day Years Used Date Smoking Tobacco: Never Smokeless Tobacco: Never Tobacco Cessation:Counseling Given: Not Answered Alcohol Use Standard Drinks/Week Comments Yes 0 (1 standard drink = 0.6 oz pur e alcohol) rare Comments Unknown Sex and Gender Information Value Date Recorded Sex Assigned at Not on file Legal Sex Female 10:44 AM CDT Gender Identity Not on file Sexual Orientation Not on file Last Filed Vital Signs Vital Sign Reading Time Taken Comments Blood Pressure 121/74 02/01/2025 1:55 PM CDT Pulse 74 02/01/2025 1:55 PM CDT Temperature 36.6 C (97.9 F) 02/01/2025 1:55 PM CDT Respiratory Rate 15 02/01/2025 1:55 PM CDT Oxygen Saturation 97% 02/01/2025 1:55 PM CDT Inhaled Oxygen Concentration - - Weight 107.1 kg (236 lb 3.2 oz) 02/01/2025 1:55 PM CDT Height 175.3 cm (5' 9) 01/26/2023 10:4 7 AM CDT Body Mass Index 34.88 01/26/2023 10:47 AM CDT Plan of Treatment Upcoming Encounters Date Type Department Care Team (Late st Contact Info) Description 08/15/2025 10:00 AM SORTER/ASSAY TECH Office Visit [facility] [place] [address] [facility] [address] [place] [address] Cr Mendez MD [address] [facility] [address] [place] [address] Health Maintenance Due Date Last Done Comments DTAP/TDAP/TD VACCINES (1 - Tdap) 11/15/1966 PNEUMOCOCCAL VACCINE 50+ YEA RS (2 of 2 - PCV) 03/21/2022 03/21/2021, 01/08/2013 RSV VACCINE (60+ or ) (1 - 1-dose 75+ series) 11/15/2022 INFLUENZA VACCINE (#1) 2025 , 05/17/2020, 09/21/2019, Additional history exists OSTEOPOROSIS SCREENING 09/04/2028 09/04/2023 COLORECTAL SCREENING Discontinued 01/08/2019 Colorectal Cancer Screening Discontinued ZOSTER VACCINE Completed 06/05/2021, 03/21/2021 FIT-DNA Q 3 years Discontinued FIT/FOBT Q 1 year Discontinued Flex Sig/CT Colonography Q 5 years Discontinued Procedures Procedure Name Priority Date/Time Associated Diagnosis Comments COMPREHENSIVE METABOLIC PANEL Routine 04/24/2025 11:44 AM CDT from Last 3 Months Results * COMPREHENSIVE METABOLIC PANEL (04/24/2025 11:44 AM CDT) Blood us Cr Mendez MD CHEMISTRY ORDERABLES Final Resu lt from Last 3 Months Insurance [facility] [id number] [address] [id number] Care Teams Corrugated Box Machine Operator Relationship Specialty Start Date End Date Mayi Dacosta MD [employer] [facility] [address] [place] [address] PCP - General Family Practice 07/22/24
--- OUTSIDE RECORDS SUMMARY | 2025-06-14 09:16 | XMS_ITS | Encounter Summary ---
Author Organization [facility] Address [address] [facility] [address] Care Team Providers Care Kindergarten Teacher Assistant Name Role Phone Homero Yanez MD Primary Care Provider Encounter Details Date Type Department Care Team (Late st Contact Info) Description 04/14/2025 Lab Requisition [facility] - DermPath Lab [address] [facility] [place] [address] Kathy Pandey DO [address] [facility] [address] [place] [address] Neoplasm of uncertain behavior of skin Social History Tobacco Use Types Packs/Day Years Used Date Smoking Tobacco: Never Smokeless Tobacco: Never Alcohol Use Standard Drinks/Week Comments Yes 0 (1 standard drink = 0.6 oz pur e alcohol) wine everyday AUDIT-C Answer Date Recorded Q1: How often do you have a drink containing alc ohol? 2-3 times a week 07/14/2022 Q2: How many drinks containi ng alcohol do you have on a typical day when you are drinking? 1 or 2 07/14/2022 Q3: How often do you have si x or more drinks on one occasion? Never 07/14/2022 Hunger Vital Sign Answer Date Recorded Within the past 12 months, y ou worried that your food would run out before you got the money to buy more. Never true 07/15/20 22 Within the past 12 months, t he food you bought just didn't last and you didn't have money to get more. Never true 07/15/2022 Comments Unknown Sex and Gender Information Value Date Recorded Sex Assigned at Not on file Legal Sex Female 4:04 AM CDT Gender Identity Not on file Sexual Orientation Not on file documented as of this encounter Functional Status * Is person deaf or have serious hearing difficulty? Answer Date of Assessment Author No 07/14/2022 10:50 PM Daphne Hayden RN * Is person blind or have serious difficulty seeing? Answer Date of Assessment Author No 07/14/2022 10:50 PM Daphne Hayden RN * Does person have serious difficulty walking/climbing stairs? Answer Date of Assessment Author No 07/14/2022 10:50 PM Daphne Hayden RN * Does person have difficulty dressing/bathing? Answer Date of Assessment Author No 07/14/2022 10:50 PM Daphne Hayden RN * Does person have difficulty doing errands alone? Answer Date of Assessment Author No 07/14/2022 10:50 PM Daphne Hayden RN documented as of this encounter Mental Status * Does person have difficulty concentrating/remembering/making decisions? Answer Entry Date Author No 07/14/2022 10:50 PM Daphne Hayden RN documented in this encounter Plan of Treatment Not on file documented as of this encounter Procedures Procedure Name Priority Date/Time Associated Diagnosis Comments DERMATOPATHOLOGY Routine 04/14/2025 9:45 AM CDT Neoplasm of uncertain behavior of skin documented in this encounter Results * DERMATOPATHOLOGY (04/14/2025 9:45 AM CDT) Case Report Dermatopathology Report Case: [id number] Authorizing Provider: Kathy Pandey DO Collected: 04/14/2025 09:45 AM Ordering Location: [facility] - Received: 04/17/2025 02:05 PM DermPath Lab Pathologist: Manju Lepe MD Specimen: Skin, left posterior thigh 4:14 PM CDT DERMATOPATHOLOGY LABORATORY Final Diagnosis Specimen A. 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 The specimen consists of a shave biopsy measuring 9x6x1 mm. Jar 0. 4:14 PM CDT DERMATOPATHOLOGY LABORATORY Microscopic Description Specimen A. SKIN, left posterior thigh: Sections reveal parakeratosis, acanthosis and keratinocyte dysmaturation which is most prominent in the lower epidermis. Focal nests are present in the dermis. Additional deeper sections were obtained and reviewed. This case was also reviewed by Dr.Nicole Sepulveda, who agrees. 4:14 PM CDT DERMATOPATHOLOGY LABORATORY Disclaimer An external and internal positive and negative controls are appropriate for the histochemical, immunohistochemical and immunofluorescence stain(s) in this case (if any), except where stated explicitly. The performance characteristics of the stain(s) cited in this report were developed and its performance characteristic determined by the Dermatopathology Laboratory at [facility], directed by Dr. Alexandra Kent. These tests need not be, and therefore are not, approved by the [place] Food and Drug Administration. The tests are used for clinical purposes. Billing Codes Specimen Charges Stain Charges 47109 1 4:14 PM CDT DERMATOPATHOLOGY LABORATORY Embedded Images 4:14 PM CDT DERMATOPATHOLOGY LABORATORY Pathology/Cytolo gy TISSUE SPECIMEN FROM SKIN / Unknown 04/14/2025 9:45 AM CDT 04/17/2025 2:05 PM CDT us Kathy Pandey DO LAB - PATHOLOGY/CYTOLOGY ORDERABLES Final Result DERMATOPATHOLOGY LABORATORY [facility] - Department of Dermatology [address], [address] [phone] documented in this encounter Visit Diagnoses Diagnosis Neoplasm of uncertain behavior of skin documented in this encounter Care Teams Kindergarten Teacher Assistant Relationship Specialty Start Date End Date Homero Yanez MD [address] [place] [id number] PCP - General 01/25/19 documented as of this encounter
--- OUTSIDE RECORDS SUMMARY | 2025-06-14 09:16 | XMS_ITS | Clinical Summary ---
Author Organization [facility] [employer] Address [address] [place] [address] Care Team Providers Care Pediatric Speech Therapist Name Role Phone Homero Yanez MD Primary Care Provider [phone] Source Comments [facility] [employer],non-owned Affiliates and Associated Physician Practices is amultiple site organization consisting of ambulatory clinics and hospital sitesin [place], [place], [place] and [place]. This disclosure is being madepursuant to the Care Everywhere program and may not contain all information available regarding this patient. Last updated 18.[employer] Allergies No known active allergies Medications * Be aware that medications may not be up to date on this document. Alwaysverify current medications with the patient. oxyCODONE, immediate release, (Roxicodone) 5 MG tablet Take 1 (one) tablet by mouth every 6 hours as needed 12 tablet 2 Active losartan-hydro CHLOROthiazide (Hyzaar) 100-25 MG tablet losartan 100 mg-hydrochlorothi azide 25 mg tablet Active venlafaxine XR 24hr (Effexor XR) 150 MG capsule venlafaxine ER 150 mg capsule,extended release 24 hr TAKE 1 CAPSULE BY MOUTH EVERY DAY Active aspirin (Aspirin) 325 MG tablet every 24 hours Activ e acetaminophen (Tylenol) 500 MG tablet Take 2 (two) tablets by mouth every 8 hours Maximum allowable Acetaminophen amount = 4 Grams (4000 mg) / 24 hours. 2 Active lidocaine (Lidoderm) 5 % patch Apply 1 (one) patch to skin every 24 hours Apply patch to most painful area and remove after 12 hours. May reapply a new patch 12 hours later. 2 Active polyethylene glycol 3350 (Miralax) 17 g packet Take 17 (seventeen) g by mouth once daily 2 Active senna (Senokot Extra Strength) 17.2 MG Take 17.2 mg by mouth once daily 2 Active Active Problems Problem Noted Date Diagnosed Date Scalp hematoma 07/17/2022 SAH (subarachnoid hemorrhage) 07/17/2022 Patella fracture 07/17/2022 Acute pain due to injury 07/15/2022 Impaired mobility and ADLs 07/15/2022 Fall, initial encounter 07/14/2022 Encounters Date Type Department Care Team Description 04/14/2025 Lab Requisition [facility] - DermPath Lab [address] [place] [address] Kathy Pandey, DO Neoplasm of uncertain behavior of skin from Last 3 Months Social History Tobacco Use Types Packs/Day Years [...] Sign Reading Time Taken Comments Blood Pressure 146/79 07/17/2022 7:58 AM [employer] Pulse 65 07/17/2022 7:58 AM [employer] Temperature 36.7 C (98.1 F) 07/17/2022 7:58 AM [employer] Respiratory Rate 18 07/17/2022 7:58 AM [employer] Oxygen Saturation 98% 07/17/2022 7:58 AM [employer] Inhaled Oxygen Concentration - - Weight 99.8 kg (220 lb) 07/14/2022 2:19 AM [employer] Height 175.3 cm (5' 9) 07/14/2022 2:19 AM [employer] Body Mass Index 32.49 07/14/2022 2:19 AM [employer] Plan of Treatment Health Maintenance Due Date Last Done Comments BONE DENSITY TESTING 1945 HEPATITIS C SCREENING 11/11/1965 DTAP/TDAP/TD VACCINES (1 - Tdap) 11/15/1966 PNEUMOCOCCAL VACCINE 50+ (1 of 1 - PCV) 11/15/1997 ZOSTER VACCINE (1 of 2) 11/15/1997 Respiratory Syncytial Virus (RSV) Vaccine Pt: or over 60 yrs (1 - 1-dose 75+ series) 11/15/2022 DEPRESSION SCREENING 08/10/2024 MEDICARE AWV CALENDAR YEAR 2024 COVID-19 VACCINE ( season) 2025 04/23/2022, 01/02/2022, 06/29/2021, Additional history exists INFLUENZA VACCINE (#1) 2025 , 06/05/2021, 05/17/2020, Additional history exists HEPATITIS B VACCINE Aged Out No longe r eligible based on patient's age to complete this topic HIB VACCINE Aged Out No longer eligi ble based on patient's age to complete this topic HPV VACCINE Aged Out No longer eligi ble based on patient's age to complete this topic MENINGOCOCCAL (Group B) VACCINE SHARED DECISION-MAKING Aged Out No longer eligible based on patient's age to complete this topic MENINGOCOCCAL GROUPS A/C/Y/W VACCINE Aged Out No longer eligible based on patient's age to complete this topic Procedures Procedure Name Priority Date/Time Associated Diagnosis Comments DERMATOPATHOLOGY Routine 04/14/2025 9:45 AM CDT Neoplasm of uncertain behavior of skin from Last 3 Months Results * DERMATOPATHOLOGY (04/14/2025 9:45 AM CDT) Case Report Dermatopathology Report Case: [id number] Authorizing Provider: Kathy Pandey DO Collected: 04/14/2025 09:45 AM Ordering Location: [facility] - Received: 04/17/2025 02:05 PM DermPath Lab Pathologist: Manju Lepe MD Specimen: Skin, left posterior thigh 4:14 PM CDT DERMATOPATHOLOGY LABORATORY Final Diagnosis Specimen A. 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 Alexandra Kent. These tests need not be, and therefore are not, approved by the [place] Food and Drug Administration. The tests are used for clinical purposes. Billing Codes Specimen Charges Stain Charges 64969 1 4:14 PM CDT DERMATOPATHOLOGY LABORATORY Embedded Images 4:14 PM CDT DERMATOPATHOLOGY LABORATORY Pathology/Cytolo gy TISSUE SPECIMEN FROM SKIN / Unknown 04/14/2025 9:45 AM CDT 04/17/2025 2:05 PM CDT Kathy Pandey DO LAB - PATHOLOGY/CYTOLOGY ORDERABLES Final Result DERMATOPATHOLOGY LABORATORY [facility] - Department of Dermatology [address] [phone] from Last 3 Months Insurance [facility] MEDICARE [facility] MANAGED MEDICARE ADV Advance Directives * Full Code (Latest Code Status on File) Date Activated Date Inactivated Comments 07/14/2022 11:22 PM 07/17/2022 5:31 PM Care Teams Pediatric Speech Therapist Relationship Specialty Start Date End Date Homero Yanez MD [address] [place] [address] PCP - General 01/25/19
--- OUTSIDE RECORDS SUMMARY | 2025-06-14 09:16 | XMS_ITS | Clinical Summary ---
Author Organization [facility] Address [address] [place] [address] Care Team Providers Care Java Software Architect Name Role Phone Miguelina Castrejon MD Primary Care Provider [phone] Allergies No known active allergies Medications aspirin 325 mg tablet Take 1 tablet by mouth daily. Active calcium carbonate/vitam in D3 (CALCIUM 600 + D,3, ORAL) Take 1 tablet by mouth daily. Active losartan-hydroc hlorothiazide (HYZAAR) 100-25 mg per tablet Take 1 tablet by mouth daily. Active venlafaxine XR (EFFEXOR-XR) 75 mg 24 hr capsule Take 1 capsule by mouth nightly. 09/08/2017 Active docusate sodium (COLACE) 100 mg capsule Take 100 mg by mouth 2 (two) times a day as needed for constipation . Active Active Problems Problem Noted Date Diagnosed Date Sensorineural hearing loss (SNHL) of both ears 0 03/12/2015 Sensorineural hearing loss (SNHL) 08/09/2014 Presbycusis 07/11/2014 Ear ringing 07/11/2014 Hearing loss 07/04/2014 Hypertension Localized osteoarthritis of left shoulder Depression TIA (transient ischemic attack) Surgical History Surgery Date Site/Laterality Comments BREAST BIOPSY benign; 1969, 1978, 2007 REPLACEMENT TOTAL KNEE 08/10/2015 - 08/09/2016 Right TUBAL LIGATION Medical History Medical History Date Comments Hypertension Osteoarthritis Depression TIA (transient ischemic attack) Anesthesia Pt reports posto p motion sickness in past, but did well with most recent knee replacement 12/2015 and request similar anesthesia HL (hearing loss) Tinnitus Family History Medical History Relation Name Comments Esophageal cancer Father Family his tory of malignant neoplasm of esophagus - (Added by TW Conv) age 86 Stroke Father age 70 Ovarian cancer Mother Ovarian cance r - (Added by TW Conv). age 63 Hypertension Sister 1 Family history of hypertension - (Added by TW Conv) Breast cancer Sister 2 Family history of malignant neoplasm of breast - (Added by TW Conv) Relation Name Status Comments Father Mother Sister 1 Sister 2 Social History Tobacco Use Types Packs/Day Years Used Date Smoking Tobacco: Never Smokeless Tobacco: Never Alcohol Use Standard Drinks/Week Comments Yes 2 (1 standard drink = 0.6 oz pur e alcohol) Comments No Sex and Gender Information Value Date Recorded Sex Assigned at Not on file Legal Sex Female 4:30 PM [employer] Gender Identity Not on file Sexual Orientation Not on file Last Filed Vital Signs Vital Sign Reading Time Taken Comments Blood Pressure 101/61 12/19/2017 9:00 AM CDT Pulse 57 12/19/2017 9:00 AM CDT Temperature 36.9 C (98.4 F) 12/19/2017 9:00 AM CDT Respiratory Rate 16 12/19/2017 9:00 AM CDT Oxygen Saturation 95% 12/19/2017 9:00 AM CDT Inhaled Oxygen Concentration - - Weight 86.1 kg (189 lb 13.1 oz) 12/18/2017 6:15 AM CDT Height 174 cm (5' 8.5) 12/18/2017 6:15 AM CDT Body Mass Index 28.44 12/18/2017 6:15 AM CDT Plan of Treatment Not on file Medical Devices Implanted Type Area Asset Coordinator Device Identifier Shelf Expiration Date Model / Serial / Lot Cement Bone Smartset 40 Gm Medium Viscosity Sterile - [id number] Implanted:Qty: 1 on 12/18/2017 by Lars Chin MD at [facility] Left: Shoulder [employer] 06/09/2019 [id number] / / [id number] Nucleus Size 2 Simpliciti - [id number] - [id number] Implanted:Qty: 1 on 12/18/2017 by Lars Chin MD at [facility] Left: Shoulder [employer] [id number] 09/30/2022 [id number] / [id number] 29 / Head 48 X 21 Simpliciti Stb Humeral - [id number] - [id number] Implanted:Qty: 1 on 12/18/2017 by Lars Chin MD at [facility] Left: Shoulder [employer] [id number] 03/26/2021 [id number] / [id number] 13 / Glenoid Aequalis Perform (Keeled)- L40 - [id number] Implanted:Qty: 1 on 12/18/2017 by Lars Chin MD at [facility] Left: Shoulder [employer] 06/24/2022 [id number] / / [id number] Explanted Type Area Asset Coordinator Device Identifier Shelf Expiration Date Model / Serial / Lot Pin Alignment Aequalis L200 Mm Od2.5 Mm Shoulder Glenoid Sterile Disposable - [id number] Explanted:Qty: 1 on 12/18/2017 at [facility] Left: Shoulder [employer] 10/08/2022 [id number] / / [id number] Insurance [facility] MEDICARE ADVANTAGE Advance Directives For more information, please contact: [phone] Documents on File Type Date Recorded Patient Accounts Payable Administrator Expl anation ADVANCE DIRECTIVE 12/18/2017 5:49 AM ADVANCE DIRECTIVE 12/18/2017 Advance Di rective Checklist * Full Code (Latest Code Status on File) Date Activated Date Inactivated Comments 12/18/2017 11:59 AM 12/19/2017 1:41 PM Care Teams Java Software Architect Relationship Specialty Start Date End Date Miguelina Castrejon MD PCP - General Family Practice 10/22/20
--- OUTSIDE RECORDS SUMMARY | 2025-06-14 09:16 | XMS_ITS | Encounter Summary ---
Author Organization [facility] Address [address] [facility] [place] [address] Care Team Providers Care Buggyman Name Role Phone Homero Yanez MD Primary Care Provider [phone] Encounter Details Date Type Department Care Team (Late st Contact Info) Description 04/07/2024 Lab Requisition [facility] - DermPath Lab [address] [facility], [place] [address] Kathy Pandey DO [address] [facility] 3L [place] [address] Social History Tobacco Use Types Packs/Day Years [...] Priority Date/Time Associated Diagnosis Comments DERMATOPATHOLOGY Routine 04/07/2024 9:19 AM CDT documented in this encounter Results * DERMATOPATHOLOGY (04/07/2024 9:19 AM CDT) Case Report Dermatopathology Report Case: [id number] Authorizing Provider: Kathy Pandey DO Collected: 04/07/2024 09:19 AM Ordering Location: [facility] - Received: 04/12/2024 06:21 AM DermPath Lab Pathologist: Mayelin Sepulveda MD Specimens: A) - Skin, left mid back B) - Skin, right upper arm 1:14 PM CDT DERMATOPATHOLOGY LABORATORY Final Diagnosis Specimen A. SKIN, left mid back: LICHEN PLANUS-LIKE KERATOSIS (BENIGN LICHENOID KERATOSIS) (L82.1) Specimen B. 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 The specimen consists of a shave biopsy measuring 9x7x1 mm. Jar 0. Specimen B: Received is one formalin filled container labeled with the patient's name and designated right upper arm. The specimen consists of a shave biopsy measuring 9x8x1 mm. Jar 0. 1:14 PM CDT DERMATOPATHOLOGY LABORATORY Microscopic Description Specimen A. SKIN, left mid back: The epidermis is mildly acanthotic. There is a lichenoid infiltrate with vacuolar changes of basilar keratinocytes and scattered necrotic keratinocytes. Specimen B. SKIN, right upper arm: The epidermis is mildly acanthotic. There is a lichenoid infiltrate with vacuolar changes of basilar keratinocytes and scattered necrotic keratinocytes. Sections show non-specific changes, including solar elastosis and vascular ectasia. 1:14 PM CDT DERMATOPATHOLOGY LABORATORY Disclaimer An external and internal positive and negative controls are appropriate for the histochemical, immunohistochemical and immunofluorescence stain(s) in this case (if any), except where stated explicitly. The performance characteristics of the stain(s) cited in this report were developed and its performance characteristic determined by the Dermatopathology Laboratory at [facility], directed by Dr. Alexandra Kent. These tests need not be, and therefore are not, approved by the [place] Food and Drug Administration. The tests are used for clinical purposes. Billing Codes Specimen Charges Stain Charges 32416 36101 1 1 1:14 PM CDT DERMATOPATHOLOGY LABORATORY Embedded Images 1:14 PM CDT DERMATOPATHOLOGY LABORATORY Pathology/Cytology TISSUE SPECIMEN FROM SKIN / Unknown 04/07/2024 9:19 AM CDT 04/12/2024 6:21 AM CDT Miscellaneous samples (specimen) TISSUE SPECIMEN FROM SKIN / Unknown 04/07/2024 9:19 AM CDT 04/12/2024 6:21 AM CDT us Kathy Pandey DO LAB - PATHOLOGY/CYTOLOGY ORDERABLES Final Result DERMATOPATHOLOGY LABORATORY [facility] - Department of Dermatology [facility] [address] [place] [address], [address] [phone] documented in this encounter Visit Diagnoses Not on filedocumented in this encounter Care Teams Buggyman Relationship Specialty Start Date End Date Homero Yanez MD [address] [place] [address] PCP - General 01/25/19 documented as of this encounter
== END 2025-06-14 08:52 | disposition home or self-care (01) ==
LOC: ANHFOHIMG 08:53
PROVIDERS: PCP Family Medicine; Visit Provider Surgery
DX: R92.8 Other abnormal and inconclusive findings on diagnostic imaging of breast (principal); Z12.31 Encounter for screening mammogram for malignant neoplasm of breast; D05.11 Intraductal carcinoma in situ of right breast
CPT/HCPCS: 77063; 77067

== ENCOUNTER 2025-06-23 13:09 | Outpatient (CLI) | payer MEDICARE, SELFPAY ==
--- NOTE | ~2025-06-23 | MMUS_ITS ---
EXAMINATION: MM diagnostic james LT w kelton, US breast LT limited HISTORY: Follow-up left breast asymmetry TECHNIQUE: Additional 3-D tomosynthesis images of the left breast were performed and synthetic 2-D images were generated. CAD analysis was submitted and interpreted. High resolution Limited left breast ultrasound was performed. COMPARISON: Comparison to multiple prior studies sequentially, with oldest reviewed study dated 11/10/2023. BREAST PARENCHYMAL COMPOSITION: Not dense: There are scattered areas of fibroglandular density. FINDINGS: MAMMOGRAPHIC FINDINGS: Focal asymmetry inferiorly in the left breast compresses with spot views, no discrete mass or architectural distortion is identified. No suspicious cluster of calcifications. ULTRASOUND: Limited left breast ultrasound: There are small cysts of the left breast measuring 3 mm or less. No suspicious sonographic abnormalities are identified to suggest malignancy. IMPRESSION: 1. No evidence for malignancy in the left breast. 2. Routine yearly screening mammogram and regular clinical breast examination are recommended. BI-RADS Category 2: Benign finding(s). Reviewed, dictated and finalized at location B. TARIAN AIDE IMPRESSION: 1. No evidence for malignancy in the left breast. 2. Routine yearly screening mammogram and regular clinical breast examination a re recommended. BI-RADS Category 2: Benign finding(s).
--- OUTSIDE RECORDS SUMMARY | 2025-06-23 17:26 | XMS_ITS | Clinical Summary ---
Author Organization [facility] Address [address] [place] [address] Care Team Providers Care Cardiovascular Physician Assistant Name Role Phone Homero Yanez MD Primary Care Provider [phone] Source Comments [facility],non-owned Affiliates and Associated Physician Practices is amultiple site organization consisting of ambulatory clinics and hospital sitesin [place], [place], [place] and [place]. This disclosure is being madepursuant to the Care Everywhere program and may not contain all information available regarding this patient. 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 Pulse 65 07/17/2022 7:58 AM GRAIN WAFER MACHINE OPERATOR Temperature 36.7 C (98.1 F) 07/17/2022 7:58 AM GRAIN WAFER MACHINE OPERATOR Respiratory Rate 18 07/17/2022 7:58 AM GRAIN WAFER MACHINE OPERATOR Oxygen Saturation 98% 07/17/2022 7:58 AM GRAIN WAFER MACHINE OPERATOR Inhaled Oxygen Concentration - - Weight 99.8 kg (220 lb) 07/14/2022 2:19 AM GRAIN WAFER MACHINE OPERATOR Height 175.3 cm (5' 9) 07/14/2022 2:19 AM GRAIN WAFER MACHINE OPERATOR Body Mass Index 32.49 07/14/2022 2:19 AM GRAIN WAFER MACHINE OPERATOR Plan of Treatment Health Maintenance Due Date [...] AM CDT) Case Report Dermatopathology Report Case: [id number] Authorizing Provider: Kathy Pandey DO Collected: 04/14/2025 09:45 AM Ordering Location: [facility] - Received: 04/17/2025 02:05 PM DermPath Lab [...] characteristic determined by the Dermatopathology Laboratory at [facility], directed by Dr. Alexandra Kent. These tests need not be, and therefore are not, approved by the [place] Food and Drug Administration. The tests are used for clinical purposes. Billing Codes Specimen Charges Stain Charges 67318 1 4:14 PM CDT DERMATOPATHOLOGY LABORATORY Embedded Images 4:14 PM CDT DERMATOPATHOLOGY LABORATORY Pathology/Cytolo gy TISSUE SPECIMEN FROM SKIN / Unknown 04/14/2025 9:45 AM CDT 04/17/2025 2:05 PM CDT Kathy Pandey DO LAB - PATHOLOGY/CYTOLOGY ORDERABLES Final Result DERMATOPATHOLOGY LABORATORY [facility] - Department of Dermatology [address], [address] [phone] from Last 3 Months Insurance [facility] MEDICARE [facility] MANAGED MEDICARE ADV Advance Directives * Full Code (Latest Code Status on File) Date Activated Date Inactivated Comments 07/14/2022 11:22 PM 07/17/2022 5:31 PM Care Teams Cardiovascular Physician Assistant Relationship Specialty Start Date End Date Homero Yanez MD [address] [place] [address] PCP - General 01/25/19
--- OUTSIDE RECORDS SUMMARY | 2025-06-23 17:26 | XMS_ITS | Clinical Summary ---
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 Office Visit [facility] Oncology and Hematology - [place] [address] [facility] [address] [place] [address] Cr Mendez MD [address] [facility] [address] [place] [address] Health Maintenance Due Date Last [...] METABOLIC PANEL (04/24/2025 11:44 AM CDT) Blood Cr Mendez MD CHEMISTRY ORDERABLES Final Resu lt from Last 3 Months Insurance [facility] [id number] Member Subscriber Plan / Payer (Ef fective 2024-Present) Name:Cecelia Gutierres Relation to Subscriber:Self Name:Cecelia Gutierres Payer ID:[id number] (NAIC) Type:O Address: [place] [id number] [place] [id number] Care Teams Manager Sql Relationship Specialty Start Date End Date Mayi Dacosta MD [facility] [facility] [address] [place] [phone] PCP - General Family Practice 07/22/24
--- OUTSIDE RECORDS SUMMARY | 2025-06-23 17:26 | XMS_ITS | Encounter Summary ---
Author Organization [facility] Address [address] [facility] [place] [address] Care Team Providers Care Coating And Baking Operator Name Role Phone Homero Yanez MD Primary Care Provider [phone] Encounter Details Date Type Department Care Team (Late st Contact Info) Description 04/07/2024 Lab Requisition [facility] - DermPath Lab [address] [facility], [place] [address] Kathy Pandey DO [address] [facility] 3L [place] [address] Social History Tobacco Use Types Packs/Day Years [...] AM CDT) Case Report Dermatopathology Report Case: [id number] Authorizing Provider: Kathy Pandey DO Collected: 04/07/2024 09:19 AM Ordering Location: [facility] - Received: 04/12/2024 06:21 AM DermPath [...] characteristic determined by the Dermatopathology Laboratory at [facility], directed by Dr. Alexandra Kent. These tests need not be, and therefore are not, approved by the [place] Food and Drug Administration. The tests are used for clinical purposes. Billing Codes Specimen Charges Stain Charges 05266 22201 1 1 1:14 PM CDT DERMATOPATHOLOGY LABORATORY Embedded Images 1:14 PM CDT DERMATOPATHOLOGY LABORATORY Pathology/Cytology TISSUE SPECIMEN FROM SKIN / Unknown 04/07/2024 9:19 AM CDT 04/12/2024 6:21 AM CDT Miscellaneous samples (specimen) TISSUE SPECIMEN FROM SKIN / Unknown 04/07/2024 9:19 AM CDT 04/12/2024 6:21 AM CDT us Kathy Pandey DO LAB - PATHOLOGY/CYTOLOGY ORDERABLES Final Result DERMATOPATHOLOGY LABORATORY [facility] - Department of Dermatology [facility] Medicine [address] [place] [address], [address] [phone] documented in this encounter Visit Diagnoses Not on filedocumented in this encounter Care Teams Coating And Baking Operator Relationship Specialty Start Date End Date Homero Yanez MD [address] [place] [address] PCP - General 01/25/19 documented as of this encounter
--- OUTSIDE RECORDS SUMMARY | 2025-06-23 17:26 | XMS_ITS | Clinical Summary ---
Author Organization 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 Gender Identity Not on file Sexual Orientation [...] on file Medical Devices Implanted Type Area Optical Lens Manufacturing Tech Device Identifier Shelf Expiration Date Model / Serial / Lot Cement Bone Smartset 40 Gm Medium Viscosity Sterile - [id number] Implanted:Qty: 1 on 12/18/2017 by Lars Chin MD at [facility] Left: Shoulder [employer] 06/09/2019 [id number] / / [id number] Nucleus Size 2 Simpliciti - [id number] - [id number] Implanted:Qty: 1 on 12/18/2017 by Lars Chin MD at [facility] Left: Shoulder [employer] [id number] 09/30/2022 [id number] / [id number] 29 / Head 48 X 21 Simpliciti Stb Humeral - [id number] - [id number] Implanted:Qty: 1 on 12/18/2017 by Lars Chin MD at [facility] Left: Shoulder [employer] [id number] 03/26/2021 [id number] / [id number] 13 / Glenoid Aequalis Perform (Keeled)- L40 - [id number] Implanted:Qty: 1 on 12/18/2017 by Lars Chin MD at [facility] Left: Shoulder [employer] 06/24/2022 [id number] / / [id number] Explanted Type Area Optical Lens Manufacturing Tech Device Identifier Shelf Expiration Date Model / Serial / Lot Pin Alignment Aequalis L200 Mm Od2.5 Mm Shoulder Glenoid Sterile Disposable - [id number] Explanted:Qty: 1 on 12/18/2017 at [facility] Left: Shoulder [employer] 10/08/2022 [id number] / / [id number] Insurance [facility] MEDICARE ADVANTAGE Advance Directives For more information, please contact: [phone] Documents on File Type Date Recorded Patient On Call Pharmacy Technician Expl anation ADVANCE DIRECTIVE 12/18/2017 5:49 AM ADVANCE DIRECTIVE 12/18/2017 Advance Di rective Checklist * Full Code (Latest Code Status on File) Date Activated Date Inactivated Comments 12/18/2017 11:59 AM 12/19/2017 1:41 PM Care Teams Exterminator Helper Relationship Specialty Start Date End Date Miguelina Castrejon MD PCP - General Family Practice 10/22/20
--- OUTSIDE RECORDS SUMMARY | 2025-06-23 17:26 | XMS_ITS | Encounter Summary ---
Author Organization [facility] Address [address] [facility] [place] [address] Care Team Providers Care Production Truck Driver Name Role Phone Homero Yanez MD Primary Care Provider [phone] Encounter Details Date Type Department Care Team (Late st Contact Info) Description 04/14/2025 Lab Requisition [facility] - DermPath Lab [address] [facility], [place] [address] Kathy Pandey DO [address] [facility] 3L [place] [address] Neoplasm of uncertain behavior of skin Social [...] AM CDT) Case Report Dermatopathology Report Case: [id number] Authorizing Provider: Kathy Pandey DO Collected: 04/14/2025 09:45 AM Ordering Location: [facility] - Received: 04/17/2025 [...] characteristic determined by the Dermatopathology Laboratory at [facility], directed by Dr. Alexandra Kent. These tests need not be, and therefore are not, approved by the [place] Food and Drug Administration. The tests are used for clinical purposes. Billing Codes Specimen Charges Stain Charges 39791 1 4:14 PM CDT DERMATOPATHOLOGY LABORATORY Embedded Images 4:14 PM CDT DERMATOPATHOLOGY LABORATORY Pathology/Cytolo gy TISSUE SPECIMEN FROM SKIN / Unknown 04/14/2025 9:45 AM CDT 04/17/2025 2:05 PM CDT us Kathy Pandey DO LAB - PATHOLOGY/CYTOLOGY ORDERABLES Final Result DERMATOPATHOLOGY LABORATORY [facility] - Department of Dermatology [address], [address] [phone] documented in this encounter Visit Diagnoses Diagnosis Neoplasm of uncertain behavior of skin documented in this encounter Care Teams Production Truck Driver Relationship Specialty Start Date End Date Homero Yanez MD [address] [place] [phone] PCP - General 01/25/19 documented as of this encounter
== END 2025-06-23 13:10 | disposition home or self-care (01) ==
LOC: ANHFOHIMG 13:10
PROVIDERS: PCP Family Medicine; Visit Provider Surgery
DX: R92.8 Other abnormal and inconclusive findings on diagnostic imaging of breast (principal)
CPT/HCPCS: 76642; 77061; 77065; G0279